=== PATIENT | male | born 1940 | race Caucasian/White ===

== ENCOUNTER → 2019-01-30 | Outpatient (CLI) | payer MEDICAID, MEDICARE ==
--- NOTE | 2019-01-31 13:13 | XCELERA REPORT ---
[address] [address] Lower Extremity Arterial Evaluation Name: TJ RAMOS Age: 78 yrs Gender: Male : 1940 Patient Status: Outpatient Patient Location: [facility] Study Date: 01/30/2019 03:02 PM Procedure: A color flow and duplex scan of the lower extremity arteries was performed bilaterally with velocity and waveform anaylsis. Reason For Study: PVD Ordering Physician: PARAM BROWN Performed By: Cosme Peña Measurements and Calculations Right Left BRIQUETTE MAKER PSV 230.1 412.5 cm/sec Prox PFA PSV -127.8 -166.0cm/sec Prox SFA PSV 101.8 169.7 cm/sec Mid SFA PSV -278.1 -173.8cm/sec Dist SFA PSV -52.5 -35.0 cm/sec Prox Pop A PSV 32.1 46.5 cm/sec Dist ARTIS PSV 14.3 19.1 cm/sec Dist FUNERAL PRE ARRANGEMENT COUNSELOR PSV 34.4 11.8 cm/sec Simon Pedis PSV 0.20 -10.8 cm/sec Right Side Arterial Evaluation Increased velocity and biphasic waveforms noted in the Common Femoral artery. Monophasic with moderately diminished velocity, spectral broadening, form Distal Femoral to the infrageniculate vessels . Quite severely diminished at the infrageniculate level. Ankle Brachial index not obtained due to inability to tolerate. Left Side Arterial Evaluation Normal velocity and triphasic waveforms noted in the Common Femoral artery. Biphasic, with low normal velocity in the Popliteal. Monophasic with quite severely diminished velocity, spectral broadening, in the infrageniculate vessels . Ankle Brachial index not obtained due to inability to tolerate. Interpretation Summary Severe hemodynamically significant lesions in the bilateral lower extremities, on duplex imaging, at rest. Multi level disease on the right, probable inflow and Femoral disease. On the left, Femoral and infrageniculate. : PARAM BROWN > Param Brown
== END ==
LOC: SP 14:34
PROVIDERS: ATTEND Surgery
DX: R09.89 Other specified symptoms and signs involving the circulatory and respiratory systems (principal)
CPT/HCPCS: 93925

== ENCOUNTER 2019-03-24 20:08 | Emergency (ER) | payer MEDICARE, MEDICAID ==
[2019-03-24] MEDS ORDERED: NORMAL SALINE 250 ML IV PRN (20:44)
--- NOTE | 2019-03-24 20:45 | ER Document Report ---
ED General - General Stated Complaint: BLOOD TRANSFUSION Time Seen by Provider: 03/24/19 20:34 Primary Care Provider: RONAN LASSITER MD [Primary Care Provider] - Follow up tomorrow Notes: Patient is a 78-year-old male who abnormal lab values. He had a CBC done today and hemoglobin was 7.6 and his hematocrit was 22.1. He currently is being taken care of by Da[facility] Lopez. He was sent by the primary care provider who took care of him today. He had a urinalysis and CBC done. Patient denies any symptoms at this time. He states that he was sent here by his primary care provider. Denies any fever, abdominal pain, chest pain, shortness of breath, difficulty breathing, or any other symptoms. TRAVEL OUTSIDE OF THE [place] IN LAST 30 DAYS: No - Related Data Allergies/Adverse Reactions: No Known Allergies Allergy (Verified 03/25/19 00:59) Past Medical History - Social History Smoking Status: Unknown if Ever Smoked Family History: Reviewed & Not Pertinent Review of Systems - Review of Systems Notes: REVIEW OF SYSTEMS: CONSTITUTIONAL : Denies recent illness. Denies recent unintentional weight loss. Denies fever, chills, or sweats. EENT: Denies eye, ear, throat, or mouth pain, discharge, or symptoms. Denies nasal or sinus congestion. CARDIOVASCULAR: Denies chest pain. RESPIRATORY: Denies shortness of breath, cough, congestion, difficulty breathing, or wheezing. GASTROINTESTINAL: Denies nausea, vomiting, and diarrhea. Denies abdominal pain. Denies constipation. GENITOURINARY: Denies difficulty urinating, burning, blood in urine, urgency or frequency. MUSCULOSKELETAL: Denies neck and back pain. Denies joint pain or swelling. SKIN: Denies rash, itchiness, or lesions HEMATOLOGIC : Denies easy bruising or bleeding. LYMPHATIC: Denies swollen, painful, enlarged glands. NEUROLOGICAL: Denies no numbness or tingling denies weakness. Denies headache. Denies altered mental status. Denies alteration in speech. PSYCHIATRIC: Denies stress, anxiety, alteration in sleep patterns, or depression. All other systems reviewed and negative. Physical Exam - Vital signs Vitals: Resp 17 03/24/19 20:23 - Notes Notes: PHYSICAL EXAMINATION: GENERAL: Appears well, healthy, well-nourished, no acute distress. HEAD: Normocephalic, atraumatic. EYES: PERRL, conjunctiva normal, all extraocular movements intact, sclera nonicteric ENT: Moist mucous membranes. NECK: Supple, no noticeable swelling, redness, rash. Normal range of motion. LUNGS: Equal breath sounds bilaterally and clear to auscultation. No wheezes rales or rhonchi. CARDIOVASCULAR: S1-S2, regular rate, regular rhythm. Radial pulses 2+, normal. ABDOMEN: Normoactive bowel sounds. Soft, nontender, no guarding, no rebound tenderness, and no masses palpated. EXTREMITIES: Normal strength and range of motion, no pitting or edema. No cyanosis. NEUROLOGICAL: Moves all extremities upon command. Strength 5/5 in all extremities. PSYCH: Normal mood, normal affect. SKIN: Warm, dry. No rash, lesions, ulcerations noted. Normal skin turgor. Course - Re-evaluation Re-evalutation: 03/24/19 20:40 Patient's blood pressure 86/38. I suspect his blood pressure is due to him needing blood. He will receive 1 unit of PRBCs. I will not redraw labs, as he did have labs drawn here resulted here and redrawing labs will delay care. I discussed the risks and benefits of a blood transfusion with the patient. He is in agreement to have the blood transfusion done. Patient appears pale. He has no abdominal tenderness. Denies any dysuria. Rectal exam will be done to rule out a GI bleed. I do not suspect the patient has an abdominal bleed, or any life-threatening etiology at this time. 03/25/19 01:18 Rectal exam was done and the patient's guaiac test is negative. He is still currently receiving his unit of PRBCs. He is normotensive now blood pressure 114/50 with a MAP of 67. Patient's hemoglobin has increased to 11. Patient looks remarkably better and he now has a pink color to his skin. I am comfortable with discharging the patient back to [facility]. He will follow-up with his primary care provider at [facility]. He is in agreement with this plan. Verbal discharge instructions were given to the patient. They verbalized understanding. They are stable for discharge. - Vital Signs Vital signs: Temp Pulse Resp BP Pulse Ox 98.0 F 57 L 15 121/58 L 95 03/25/19 02:14 03/25/19 02:10 03/25/19 04:30 03/25/19 04:30 03/25/19 04:30 - Laboratory Result Diagrams: 03/25/19 03:29 Laboratory results interpreted by me: 03/24/19 03/25/19 20:26 03:29 RBC 3.82 L Hgb 11.0 L D Hct 33.3 L RDW 14.7 H Plt Count 118 L Crossmatch See Detail Discharge - Discharge Clinical Impression: Anemia Qualifiers: Anemia type: unspecified type Qualified Code(s): D64.9 - Anemia, unspecified Condition: Stable Disposition: HOME-SNF (ED ONLY) Additional Instructions: You were seen today in the emergency department for a low blood count. You received 1 unit of blood. Your repeat labs were normal. Your stool did not show any blood. Please follow-up with your primary care provider in regards to this visit. If you develop shortness of breath, difficulty breathing, or have any symptoms that are worrisome to you, please return to the emergency department. Referrals: RONAN LASSITER MD [Primary Care Provider] - Follow up tomorrow
[2019-03-25 03:59] LABS: HEMATOCRIT 33.3 % (37.9-51.0); MEAN CORPUSCULAR HEMOGLOBIN 28.8 pg (27.0-33.4); MEAN CORPUSCULAR HGB CONC 33.1 g/dL (32.0-36.0); MEAN CORPUSCULAR VOLUME 87 fl (80-97); PLATELET COUNT 118 10^3/uL (150-450); RED BLOOD COUNT 3.82 10^6/uL (4.35-5.55); RED CELL DISTRIBUTION WIDTH 14.7 % (11.5-14.0); WHITE BLOOD COUNT 6.5 10^3/uL (4.0-10.5)
[2019-03-25 04:32] VITALS: BP 121/58
== END 2019-03-25 04:59 ==
LOC: ER 20:08
DX: D64.9 Anemia, unspecified (principal)
CPT/HCPCS: 99284; 96360; 96361; 86900; 86901; 36415; 87040; 87086; 36430; 86850; 85025; 85027; 87088; 81001; 87186; 86920; P9016; J7050

== ENCOUNTER → 2019-07-09 | Outpatient (CLI) | payer MEDICARE, MEDICAID ==
--- NOTE | 2019-07-11 15:53 | XCELERA REPORT ---
[address] [address] Lower Extremity Arterial Evaluation Name: TJ RAMOS Age: 79 yrs Gender: Male : 1940 Patient Status: Outpatient Patient Location: [facility] Study Date: 07/09/2019 03:16 PM Procedure: A color flow and duplex scan of the lower extremity arteries was performed bilaterally with velocity and waveform anaylsis. Reason For Study: DECREASED PEDAL PULSE Ordering Physician: PARAM SHERIFF Performed By: Nicole Steele Measurements and Calculations Right Left DIRECTOR WOMEN PSV 219.0 396.8 cm/sec Prox PFA PSV -118.0 -133.4cm/sec Prox SFA PSV -99.8 -66.4 cm/sec Mid SFA PSV -52.4 -37.3 cm/sec Dist SFA PSV -58.5 -46.8 cm/sec Prox Pop A PSV 30.0 43.6 cm/sec Dist Pop A PSV -22.5 -304.5cm/sec Prox ARTIS PSV 54.7 64.0 cm/sec Dist ARTIS PSV 30.6 36.8 cm/sec Prox SERVICE CREW SUPERVISOR PSV 36.8 cm/sec Dist SERVICE CREW SUPERVISOR PSV 22.7 14.3 cm/sec Dist Contreras A 26.7 cm/sec PSV Simon Pedis PSV -25.8 35.0 cm/sec Right Side Arterial Evaluation Normal velocity and triphasic waveforms noted in the Common Femoral artery. Biphasic with high velocity, spectral broadening in the Femoral. Monophasic low velocity, spectral broadening in the Popliteal to infrageniculate vessels. Ankle Brachial index not obtained due to discomfort. Left Side Arterial Evaluation Very high velocity and Biphasic waveforms noted in the Common Femoral artery. Biphasic with high velocity, spectral broadening in the Femoral. Monophasic low velocity, spectral broadening in the Popliteal to infrageniculate vessels. A focal area of increased velocity in the Popliteal. Ankle Brachial index not obtained due to discomfort. Interpretation Summary Severe hemodynamically significant lesions in the bilateral lower extremities, on duplex imaging, at rest. Duplex findings of multilevel, stenoses. On the right Femoral and Posterior Tibial. On the left Common Femoral, Femoral arteries affected. : PARAM SHERIFF > Param Sheriff
== END ==
LOC: SP 14:51
PROVIDERS: ATTEND Surgery
DX: R09.89 Other specified symptoms and signs involving the circulatory and respiratory systems (principal)
CPT/HCPCS: 93925

== ENCOUNTER 2019-11-03 11:53 | Emergency (ER) | payer MEDICARE, MEDICAID ==
--- NOTE | 2019-11-03 12:13 | ER Document Report ---
ED General - General Chief Complaint: Foot Pain Stated Complaint: WEAKNESS Time Seen by Provider: 11/03/19 12:00 Primary Care Provider: PARAM BROWN MD [Primary Care Provider] - Follow up as needed TRAVEL OUTSIDE OF THE [place] IN LAST 30 DAYS: No - HPI Context: Patient presents from rehabilitation facility for the chief complaint of left foot pain and nursing staff stated that the patient is not acting himself. He denies any recent cough congestion fevers chest pain or shortness of breath. He denies any dysuria. He is oriented x3 and is not in any distress. Upon chart review he is not on any blood thinners. No recent traumas or falls per the patient. - Related Data Allergies/Adverse Reactions: No Known Allergies Allergy (Verified 11/03/19 12:46) Past Medical History - Social History Smoking Status: Unknown if Ever Smoked Family History: Reviewed & Not Pertinent - Past Medical History Cardiac Medical History: Reports: Hx Hypertension Renal/ Medical History: Denies: Hx Peritoneal Dialysis Past Surgical History: Reports: Hx Cardiac Surgery, Hx Open Heart Surgery Review of Systems - Review of Systems Constitutional: No symptoms reported EENT: No symptoms reported Cardiovascular: No symptoms reported Respiratory: No symptoms reported Gastrointestinal: No symptoms reported Genitourinary: No symptoms reported Male Genitourinary: No symptoms reported Musculoskeletal: See HPI Skin: No symptoms reported Hematologic/Lymphatic: No symptoms reported Neurological/Psychological: No symptoms reported Physical Exam - Vital signs Vitals: Temp Resp BP Pulse Ox 97.9 F 16 111/50 L 95 11/03/19 12:08 11/03/19 12:08 11/03/19 12:08 11/03/19 12:08 - General General appearance: Appears well, Alert - HEENT Head: Normocephalic, Atraumatic Eyes: Normal Conjunctiva: Normal Extraocular movements intact: Yes Pupils: PERRL - Respiratory Respiratory status: No respiratory distress Chest status: Nontender Breath sounds: Normal - Cardiovascular Rhythm: Regular Heart sounds: Normal auscultation Murmur: No - Abdominal Inspection: Normal Distension: No distension Bowel sounds: Normal - Back Back: Normal - Extremities General upper extremity: Normal inspection, Normal strength General lower extremity: Other - Patient has stasis dermatitis with erythema but no warmth bilateral lower extremities left versus right. +2 pitting edema bilateral feet. Palpable DP pulses with Doppler. Extensive toenail fungus onychomycosis bilateral lower extremities with no open wounds. Course - Re-evaluation Re-evalutation: 11/03/19 13:26 Initial troponin XX 3 in the absence of any chest pain. [facility] apparently patient was looking pale last night and having pain in his left foot which prompted her to send the patient to the emergency department. Repeat troponin in progress. Aspirin provided. Reevaluation of the patient he states he does not have any chest pain at this time. 11/03/19 14:46 Patient is DNR/DNI, however he would request possible catheterization if necessary. Repeat troponin essentially same as first. Discussed case with Dr. Graves, due to elevated troponin and possible catheterization request transfer. His open heart surgery was performed at [facility] discussed with transfer gerardo mary jo awaiting cardiology consultation at this time. In regards to his foot it is not warm though does have erythema worse on left and right appears chronic with stasis dermatitis and pitting edema. X-ray shows soft tissue swelling of left foot. He can also be evaluated by vascular while he is at [facility]. Discussed with Dr. Amor 11/03/19 15:[address] Amor at [facility] will accept patient for catheterization. This was determined after having lengthy discussion with family at bedside whose patient's daughter is medical power of sports attorney as well as the patient. 11/03/19 18:28 [facility] called back stated that they do not have any beds at this time it would not be until tomorrow. I tried to call [facility] transfer center and they do not have any beds at this time either. Patient remained stable chest pain- free. 11/03/19 19:17 Providing intermittent fentanyl for his left lower foot pain. Also placed standing order for every 6 EKG and troponin while patient is still in the emergency department. He also has every 12 Lovenox injection scheduled. 11/03/19 20:37 Troponin trending down on serial draw patient remains chest pain-free 11/04/19 08:49 Patient evaluated by me and is stable for transport who is arrived at this time - Vital Signs Vital signs: Temp Pulse Resp BP Pulse Ox 99.0 F 24 H 119/72 91 L 11/04/19 08:32 11/04/19 08:32 11/04/19 08:32 11/04/19 07:30 - Laboratory Result Diagrams: 11/04/19 06:50 11/03/19 12:00 Laboratory results interpreted by me: 11/03/19 11/03/19 11/03/19 12:00 12:00 12:00 RBC 3.22 L Hgb 10.3 L Hct 30.2 L RDW 14.3 H Plt Count 124 L PT 15.5 H APTT 37.0 H Creatinine 1.35 H Est GFR (MDRD) Non-Af 51 L AST 78 H NT-Pro-B Natriuret Pep Albumin 3.4 L Urine Ascorbic Acid 11/03/19 11/03/19 11/04/19 12:40 13:11 06:50 RBC 2.90 L Hgb 9.2 L Hct 26.8 L RDW 14.1 H Plt Count 111 L PT APTT Creatinine Est GFR (MDRD) Non-Af AST NT-Pro-B Natriuret Pep 6840 H Albumin Urine Ascorbic Acid 40 H - EKG Interpretation by Me Additional EKG results interpreted by me: 11/03/19 12:43 Time 12:25 PM Rate of 89 sinus rhythm, first-degree AV block with MS 252, normal axis, nonspecific ST-T wave abnormalities Discharge - Discharge Clinical Impression: NSTEMI (non-ST elevated myocardial infarction), PVD (peripheral vascular disease), Left foot pain Condition: Fair Disposition: [facility] Referrals: PARAM BROWN MD [Primary Care Provider] - Follow up as needed
[2019-11-03 12:33] LABS: ABSOLUTE EOSINOPHILS # (AUTO) 0.2 10^3/uL (0.0-0.6); ABSOLUTE LYMPHOCYTES (AUTO) 1.5 10^3/uL (0.5-4.7); ABSOLUTE MONOCYTES (AUTO) 0.9 10^3/uL (0.1-1.4); ABSOLUTE NEUT (AUTO) 6.1 10^3/uL (1.7-8.2); BASOPHILS % (AUTO) 0.3 % (0-2); EOSINOPHILS % (AUTO) 2.1 % (0-6); HEMATOCRIT 30.2 % (37.9-51.0); HEMOGLOBIN 10.3 g/dL (13.5-17.0); LYMPHOCYTES % (AUTO) 16.9 % (13-45); MEAN CORPUSCULAR HEMOGLOBIN 31.9 pg (27.0-33.4); MEAN CORPUSCULAR VOLUME 94 fl (80-97); MONOCYTES % (AUTO) 10.3 % (3-13); PLATELET COUNT 124 10^3/uL (150-450); RED BLOOD COUNT 3.22 10^6/uL (4.35-5.55); RED CELL DISTRIBUTION WIDTH 14.3 % (11.5-14.0); SEGMENTED NEUTROPHILS % (AUTO) 70.4 % (42-78); TOTAL CELLS COUNTED % (AUTO) 100 %; WHITE BLOOD COUNT 8.7 10^3/uL (4.0-10.5)
[2019-11-03] MEDS ORDERED: NORMAL SALINE 500 ML IV ONE (12:37)
[2019-11-03 12:39] LABS: ALBUMIN 3.4 g/dL (3.5-5.0); ALKALINE PHOSPHATASE 94 U/L (38-126); ANION GAP 9 (5-19); ASPARTATE AMINO TRANSFERASE 78 U/L (17-59); BILIRUBIN,DIRECT 0.2 mg/dL (0.0-0.4); BILIRUBIN,TOTAL 0.7 mg/dL (0.2-1.3); BLOOD UREA NITROGEN 19 mg/dL (7-20); CALCIUM 8.6 mg/dL (8.4-10.2); CARBON DIOXIDE 27 mmol/L (22-30); CHLORIDE 107 mmol/L (98-107); GLUCOSE 97 mg/dL (75-110); POTASSIUM 4.2 mmol/L (3.6-5.0); TOTAL PROTEIN 6.3 g/dL (6.3-8.2)
[2019-11-03 13:01] LABS: APPEARANCE,URINE CLEAR; BILIRUBIN,URINE NEGATIVE (NEGATIVE); COLOR,URINE YELLOW; GLUCOSE, URINE NEGATIVE (NEGATIVE); KETONES,URINE NEGATIVE (NEGATIVE); LEUKOCYTE ESTERASE,URINE NEGATIVE (NEGATIVE); NITRITE,URINE NEGATIVE (NEGATIVE); PROTEIN,URINE NEGATIVE (NEGATIVE); URINE SPECIFIC GRAVITY 1.015; UROBILINOGEN,URINE NEGATIVE mg/dL (<2.0)
[2019-11-03] MEDS ORDERED: ASPIRIN 81 MG TABLET, CHEWABLE PO ONE ×2 (13:07→22:37)
[2019-11-03] MEDS ORDERED: FENTANYL CITRATE INJ/PF 100 MCG/2 ML AMPUL IV ONE ×3 (13:16→19:16)
--- NOTE | 2019-11-03 13:20 | RADIOLOGY REPORT (SQ) ---
EXAM DESCRIPTION: CHEST SINGLE VIEW COMPLETED DATE/TIME: 11/03/2019 1:03 pm REASON FOR STUDY: not acting right per nursing staff COMPARISON: None. NUMBER OF VIEWS: One view. TECHNIQUE: Single frontal radiographic view of the chest acquired. LIMITATIONS: Numerous external monitor lead artifacts over the left lower chest. FINDINGS: LUNGS AND PLEURA: Minimal right perihilar edema. Suspect mild left perihilar infiltrate a s well. No pneumothorax. No large pleural effusion. MEDIASTINUM AND HILAR STRUCTURES: No masses. Contour normal. HEART AND VASCULAR STRUCTURES: Cardiomegaly. Mild vascular congestion centrally. BONES: No acute findings. HARDWARE: None in the chest. OTHER: No other significant finding. IMPRESSION: Limited study. Findings as above may reflect minimal edema. TECHNICAL DOCUMENTATION: JOB ID: [id number] [employer]- All Rights Reserved Reading location - IP/workstation name: [email or web address]
--- NOTE | 2019-11-03 13:22 | RADIOLOGY REPORT (SQ) ---
EXAM DESCRIPTION: FOOT LEFT 2 VIEWS COMPLETED DATE/TIME: 11/03/2019 1:03 pm REASON FOR STUDY: FOOT PAIN COMPARISON: None. NUMBER OF VIEWS: Two views left foot LIMITATIONS: Limited clinical information. FINDINGS: Generalized limiting osteopenia. Regional vascular calcification. Soft tissue swelling o lillian the forefoot. No displaced fracture appreciated. Chronic 3rd metatarsal healed fracture. No ag gressive bone resorption. No radiopaque foreign body. OTHER: No other significant finding. IMPRESSION: Osteopenia, vascular disease. Soft tissue swelling. No acute bone pathology allowing f or limitations. TECHNICAL DOCUMENTATION: JOB ID: [id number] Reading location - IP/workstation name: [email or web address]
[2019-11-03 14:32] LABS: TROPONIN I 22.7 ng/mL
[2019-11-03 15:44] LABS: INTERNATIONAL RATION (INR) 1.22; PROTHROMBIN TIME 15.5 SEC (11.4-15.4)
[2019-11-03] MEDS: ENOXAPARIN SODIUM INJ 100 MG/1 ML DISP.SYRIN SUBCUT SCH ×2 (16:32→21:38)
--- NOTE | 2019-11-03 19:27 | EKG REPORT ---
SEVERITY:- ABNORMAL ECG - SINUS RHYTHM FIRST DEGREE AV BLOCK NONSPECIFIC INTRAVENTRICULAR CONDUCTION DELAY : Confirmed by: Elaine Phoenix MD 03-Nov-2019 19:26:19
--- NOTE | 2019-11-03 19:27 | EKG REPORT ---
SEVERITY:- ABNORMAL ECG - SINUS RHYTHM FIRST DEGREE AV BLOCK LEFT AXIS DEVIATION PROBABLE POSTERIOR INFARCT NONSPECIFIC T ABNORMALITIES, LATERAL LEADS : Confirmed by: Elaine Phoenix MD 03-Nov-2019 19:26:26
[2019-11-03] MEDS: CLINDAMYCIN 600 MG/D5W RTU 600 MG/50 ML RTUPB IV SCH (23:15)
[2019-11-03] MEDS ORDERED: HYDROMORPHONE HCL INJ/PF 2 MG/ML AMPULE IV ONE (23:17)
[2019-11-03] MEDS ORDERED: TAMSULOSIN HCL 0.4 MG CAP.SR.24H PO ONE (23:30)
[2019-11-03] MEDS ORDERED: ATORVASTATIN CALCIUM 40 MG TABLET PO ONE (23:30)
[2019-11-04] MEDS ORDERED: MORPHINE SULFATE 10 MG/ML INJ IV ONE (01:58)
[2019-11-04] MEDS ORDERED: OXYCODONE HCL IR 5 MG TABLET PO SCH (06:00)
[2019-11-04] MEDS ORDERED: HYDROMORPHONE HCL INJ/PF 2 MG/ML AMPULE IV ONE (06:05)
[2019-11-04 07:11] LABS: HEMATOCRIT 26.8 % (37.9-51.0); HEMOGLOBIN 9.2 g/dL (13.5-17.0); MEAN CORPUSCULAR HEMOGLOBIN 31.6 pg (27.0-33.4); MEAN CORPUSCULAR HGB CONC 34.3 g/dL (32.0-36.0); MEAN CORPUSCULAR VOLUME 92 fl (80-97); PLATELET COUNT 111 10^3/uL (150-450); RED CELL DISTRIBUTION WIDTH 14.1 % (11.5-14.0); WHITE BLOOD COUNT 6.8 10^3/uL (4.0-10.5)
[2019-11-04] MEDS ORDERED: NORMAL SALINE 1000 ML 1,000 ML IV ONE (07:16)
[2019-11-04] MEDS: CLINDAMYCIN 600 MG/D5W RTU 600 MG/50 ML RTUPB IV SCH (07:21)
--- NOTE | 2019-11-04 07:45 | EKG REPORT ---
SEVERITY:- ABNORMAL ECG - SINUS RHYTHM FIRST DEGREE AV BLOCK LEFT ANTERIOR FASCICULAR BLOCK NONSPECIFIC ANTEROLATERAL ST-T CHANGES : Confirmed by: Fly Short MD 04-Nov-2019 07:44:15
--- NOTE | 2019-11-04 07:45 | EKG REPORT ---
SEVERITY:- ABNORMAL ECG - SINUS RHYTHM FIRST DEGREE AV BLOCK LEFT AXIS DEVIATION NONSPECIFIC ST-T CHANGES- ANTEROLATERAL LEADS : Confirmed by: Fly Short MD 04-Nov-2019 07:45:11
[2019-11-04] MEDS ORDERED: FUROSEMIDE 20 MG TABLET PO SCH (08:00)
[2019-11-04 08:45] VITALS: BP 119/72
[2019-11-04] MEDS ORDERED: METOPROLOL SUCCINATE 25 MG TAB.SR.24H PO SCH (10:00)
[2019-11-04] MEDS ORDERED: LOSARTAN POTASSIUM 50 MG TABLET PO SCH (10:00)
[2019-11-04] MEDS ORDERED: ASPIRIN 81 MG TABLET, ENT COATED PO SCH (10:00)
[2019-11-04] MEDS ORDERED: POTASSIUM CHLORIDE 10 MEQ TABLET.ER PO SCH (10:00)
[2019-11-04] MEDS ORDERED: FLUOXETINE HCL 20 MG/5 ML UDCUP PO SCH (10:00)
[2019-11-04] MEDS ORDERED: GABAPENTIN 300 MG CAPSULE PO SCH (10:00)
[2019-11-04] MEDS ORDERED: ATORVASTATIN CALCIUM 40 MG TABLET PO SCH (22:00)
[2019-11-04] MEDS ORDERED: TAMSULOSIN HCL 0.4 MG CAP.SR.24H PO SCH (22:00)
== END 2019-11-04 08:52 | disposition short-term general hospital (02) ==
LOC: ER 11:53
DX: I21.4 Non-ST elevation (NSTEMI) myocardial infarction (principal); I73.9 Peripheral vascular disease, unspecified; M79.672 Pain in left foot; R53.1 Weakness; I10 Essential (primary) hypertension
CPT/HCPCS: 93005 ×2; 96376; 99285; 96372; 96361; 96375; 96365; 36415; 87040; 82962; 83605; 83735; 85025; 85027; 85610; 85730; 80053; 81001; 84484; 83880; 71045; 73620; 93010 ×2; A9270 ×3; J3010; J1170 ×2; J7030; J7040; J1650

== ENCOUNTER 2019-11-16 14:40 | Inpatient (IN) | payer MEDICARE, MEDICAID ==
--- NOTE | 2019-11-16 15:27 | ER Document Report ---
ED General - General Stated Complaint: GENERAL WEAKNESS Time Seen by Provider: 11/16/19 14:54 Information source: Patient TRAVEL OUTSIDE OF THE [place] IN LAST 30 DAYS: No - HPI Onset: Other - unknown onset Onset/Duration: Persistent Quality of pain: No pain Severity: Moderate Pain Level: Denies Associated symptoms: Shortness of breath, Weakness Exacerbated by: Denies Relieved by: Denies Similar symptoms previously: No Recently seen / treated by doctor: Yes - patient was just DCed from a hospital yesterday Notes: 79 year old male with a history of HTN, "open heart surgery," recent left AKA who was just discharged form [facility] yesterday sent to the ER for weakness and "not feeling well." The patient is not much of a historian. He was hypotensive and hypoxic on ER arrival and he has no history of lung disease although he used to smoke. - Related Data Allergies/Adverse Reactions: No Known Allergies Allergy (Verified 11/03/19 12:46) Past Medical History - General Information source: Patient - Social History Smoking Status: Former Smoker Frequency of alcohol use: Social Drug Abuse: None Family History: Reviewed & Not Pertinent - Past Medical History Cardiac Medical History: Reports: Hx Hypertension Renal/ Medical History: Denies: Hx Peritoneal Dialysis Past Surgical History: Reports: Hx Cardiac Surgery, Hx Open Heart Surgery Physical Exam - Vital signs Vitals: Temp Pulse Resp BP Pulse Ox 99.0 F 83 20 98/40 L 85 L 11/16/19 15:00 11/16/19 15:00 11/16/19 15:00 11/16/19 15:00 11/16/19 15:00 - Notes Notes: GENERAL: Chronically Ill Appearing, well-nourished and mild distress HEAD: Atraumatic, normocephalic. EYES: Pupils equal round and reactive to light, extraocular movements intact, sclera anicteric, conjunctiva are normal. ENT: Nares patent, oropharynx clear without exudates. Moist mucous membranes. NECK: Normal range of motion, supple without lymphadenopathy or JVD. LUNGS: Breath sounds clear to auscultation bilaterally and equal. No wheezes rales or rhonchi. HEART: Regular rate and rhythm without murmurs, rubs or gallops. ABDOMEN: Soft, nontender, normoactive bowel sounds. No guarding, no rebound. No masses appreciated. EXTREMITIES: Normal range of motion, no pitting or edema. No clubbing or cyanosis. Left lower extremity AKA - surgical wound is clean and dry with román in place. NEUROLOGICAL: Cranial nerves II through XII grossly intact. Normal speech, no rmal gait. PSYCH: Normal mood, normal affect. SKIN: Warm, Dry, normal turgor, no rashes or lesions noted. Course - Re-evaluation Re-evalutation: 11/16/19 16:33 The patient has a BNP in the [id number] and his Xray shows a pleural effusion and patchy infiltrates vs atelectasis. Patient likely just has new onset heart failure from his recent heart attack but hospital acquired pneumonia is also possible. Patient was hypotensive on ER arrival so 500mL of fluids was given. Patient's BP came up after that. Will admit for further treatment and work up. Patient's WBC count and Lactic Acid are in the normal range and his temp is 99 making a serious infectious process seem unlikely. Will defer antibiotics for now to the hospitalist team. 11/16/19 16:42 11/16/19 19:26 Hospitalist Team will get Cardiology involved given the patient's likely new onset heart failure. - Vital Signs Vital signs: Temp Pulse Resp BP Pulse Ox 99.0 F 83 21 H 112/61 92 11/16/19 15:00 11/16/19 15:00 11/16/19 18:01 11/16/19 18:01 11/16/19 18:01 - Laboratory Result Diagrams: 11/16/19 15:22 11/16/19 15:22 Laboratory results interpreted by me: 11/16/19 11/16/19 11/16/19 15:22 15:22 15:22 RBC 2.69 L Hgb 8.3 L Hct 24.8 L RDW 14.5 H Carbonic Acid ABG pH ABG pCO2 ABG pO2 ABG Total CO2 ABG O2 Saturation BUN 30 H Creatinine 1.41 H Est GFR ( Amer) 59 L Est GFR (MDRD) Non-Af 48 L Calcium 8.1 L NT-Pro-B Natriuret Pep 80890 H Total Protein 6.1 L Albumin 3.1 L Urine Urobilinogen Urine Ascorbic Acid 11/16/19 11/16/19 15:55 16:39 RBC Hgb Hct RDW Carbonic Acid 0.95 L ABG pH 7.46 H ABG pCO2 31.5 L ABG pO2 61.0 L ABG Total CO2 22.8 L ABG O2 Saturation 92.9 L BUN Creatinine Est GFR ( Amer) Est GFR (MDRD) Non-Af Calcium NT-Pro-B Natriuret Pep Total Protein Albumin Urine Urobilinogen 2.0 H Urine Ascorbic Acid 20 H - EKG Interpretation by Mo EKG shows normal: Sinus rhythm, [place], Intervals, QRS Complexes, ST-T Waves Rhythm: NSR Discharge - Discharge Clinical Impression: Hypoxemia Heart failure Qualifiers: Heart failure type: unspecified Heart failure chronicity: acute Qualified Code(s): I50.9 - Heart failure, unspecified Condition: Stable Disposition: ADMITTED OBSERVATION Admitting Provider: Eligio (Hospitalist) Unit Admitted: [facility]
[2019-11-16 15:38] LABS: ABSOLUTE BASOPHILS # (AUTO) 0.1 10^3/uL (0.0-0.2); ABSOLUTE EOSINOPHILS # (AUTO) 0.3 10^3/uL (0.0-0.6); ABSOLUTE LYMPHOCYTES (AUTO) 1.2 10^3/uL (0.5-4.7); ABSOLUTE MONOCYTES (AUTO) 0.7 10^3/uL (0.1-1.4); ABSOLUTE NEUT (AUTO) 6.7 10^3/uL (1.7-8.2); BASOPHILS % (AUTO) 0.6 % (0-2); EOSINOPHILS % (AUTO) 2.8 % (0-6); HEMATOCRIT 24.8 % (37.9-51.0); HEMOGLOBIN 8.3 g/dL (13.5-17.0); LYMPHOCYTES % (AUTO) 13.2 % (13-45); MEAN CORPUSCULAR HEMOGLOBIN 30.9 pg (27.0-33.4); MEAN CORPUSCULAR HGB CONC 33.5 g/dL (32.0-36.0); MEAN CORPUSCULAR VOLUME 92 fl (80-97); MONOCYTES % (AUTO) 8.1 % (3-13); PLATELET COUNT 294 10^3/uL (150-450); RED BLOOD COUNT 2.69 10^6/uL (4.35-5.55); RED CELL DISTRIBUTION WIDTH 14.5 % (11.5-14.0); SEGMENTED NEUTROPHILS % (AUTO) 75.3 % (42-78); TOTAL CELLS COUNTED % (AUTO) 100 %; WHITE BLOOD COUNT 8.9 10^3/uL (4.0-10.5)
[2019-11-16 15:56] LABS: ALBUMIN 3.1 g/dL (3.5-5.0); ALKALINE PHOSPHATASE 81 U/L (38-126); ANION GAP 8 (5-19); ASPARTATE AMINO TRANSFERASE 24 U/L (17-59); BILIRUBIN,DIRECT 0.2 mg/dL (0.0-0.4); BLOOD UREA NITROGEN 30 mg/dL (7-20); CALCIUM 8.1 mg/dL (8.4-10.2); CARBON DIOXIDE 25 mmol/L (22-30); CHLORIDE 107 mmol/L (98-107); GLUCOSE 88 mg/dL (75-110); POTASSIUM 4.5 mmol/L (3.6-5.0); TOTAL PROTEIN 6.1 g/dL (6.3-8.2)
[2019-11-16] MEDS ORDERED: NORMAL SALINE 500 ML IV ONE (16:00)
[2019-11-16] MEDS ORDERED: MORPHINE SULFATE 10 MG/ML INJ IV ONE (16:01)
--- NOTE | 2019-11-16 16:02 | RADIOLOGY REPORT (SQ) ---
EXAM DESCRIPTION: CHEST SINGLE VIEW COMPLETED DATE/TIME: 11/16/2019 2:43 pm REASON FOR STUDY: eval for SOB. rule out pneumonia COMPARISON: 11/03/2019 EXAM PARAMETERS: NUMBER OF VIEWS: One view. TECHNIQUE: Single frontal radiographic view of the chest acquired. RADIATION DOSE: NA LIMITATIONS: None. FINDINGS: LUNGS AND PLEURA: There is new consolidation in the right lower lobe. New left retrocardi ac opacity is also present. Small right pleural effusion. No pneumothorax. MEDIASTINUM AND HILAR STRUCTURES: No masses. Contour normal. HEART AND VASCULAR STRUCTURES: Heart normal in size. Normal vasculature. BONES: No acute findings. HARDWARE: None in the chest. OTHER: No other significant finding. IMPRESSION: 1. New consolidation in the right lower lobe with small right pleural effusion suggestive of infectio us/inflammatory process. Aspiration pneumonitis can also have this appearance. 2. Patchy retrocardiac opacity may represent multifocal pneumonia or possibly atelectasis. RECOMMENDATIONS: Follow-up to complete resolution. TECHNICAL DOCUMENTATION: JOB ID: [id number] [employer]- All Rights Reserved Reading location - IP/workstation name: [email or web address]
[2019-11-16 16:17] LABS: TROPONIN I 0.214 ng/mL
[2019-11-16 16:18] LABS: APPEARANCE,URINE SLIGHTLY-CLOUDY; BILIRUBIN,URINE NEGATIVE (NEGATIVE); COLOR,URINE YELLOW; GLUCOSE, URINE NEGATIVE (NEGATIVE); KETONES,URINE NEGATIVE (NEGATIVE); LEUKOCYTE ESTERASE,URINE NEGATIVE (NEGATIVE); NITRITE,URINE NEGATIVE (NEGATIVE); PROTEIN,URINE NEGATIVE (NEGATIVE); URINE SPECIFIC GRAVITY 1.017
[2019-11-16] MEDS ORDERED: CEFTRIAXONE INJ 1000 MG VIAL IV ONE (16:27)
[2019-11-16 17:00] LABS: ARTERIAL BLOOD BASE EXCESS -1.6 mmol/L; ARTERIAL BLOOD H2CO3 0.95 mmol/L (1.05-1.35); ARTERIAL BLOOD HCO3 21.8 mmol/L (20-24); ARTERIAL BLOOD O2 SATURATION 92.9 % (94-98); ARTERIAL BLOOD PCO2 31.5 mmHg (35-45); ARTERIAL BLOOD PH 7.46 (7.35-7.45); ARTERIAL BLOOD TOTAL CO2 22.8 mmol/L (23-27)
[2019-11-16 17:01] LABS: ARTERIAL BLOOD FIO2 ROOM AIR
[2019-11-16] MEDS ORDERED: GUAIFENESIN SYRP 200 MG/10 ML UDC PO PRN (17:58)
[2019-11-16] MEDS ORDERED: VANCOMYCIN HCL 0 MG in DEXTROSE 5%-WATER 250 ML IV NR (18:00)
[2019-11-16] MEDS ORDERED: PHARMACY COMMUNICATION ORDER MC NR (18:00)
--- NOTE | 2019-11-16 18:21 | PDOC H&P ---
History of Present Illness Admission Date/PCP: 11/16/19 17:03 PARAM BROWN MD Patient complains of: Feeling poorly History of Present Illness: TJ RAMOS is a 79 year old male who was discharged yesterday from [facility] who at the age of [age] years old had a left above-knee amputation. He had atrial fibrillation and has a complex cardiac history. Daija Lopez sent him over because "he did not look good ". The patient presents quite f rail. No increased work of breathing. Abnormal chest x-ray. No elevated white blood cell count. Elevated troponin. Referred to hospitalist for admission Past Medical History Cardiac Medical History: Reports: Atrial Fibrillation, Congestive Heart Failure, Coronary Artery Disease, Hypertension, Peripheral Vascular Disease Pulmonary Medical History: Reports: Chronic Obstructive Pulmonary Disease (COPD) GI Medical History: Reports: Other - Hiatal hernia Musculoskeltal Medical History: Reports: Arthritis Past Surgical History Past Surgical History: Reports: Other - Amputation Social History Information Source: Patient, Relative, H Records, Outside Facility Records Lives with: [facility] Smoking Status: Former Smoker Electronic Cigarette use?: No Frequency of Alcohol Use: None Hx Recreational Drug Use: No Hx Prescription Drug Abuse: No - Advance Directive Resuscitation Status: Do Not Resuscitate Family History Family History: Reviewed & Not Pertinent Parental Family History Reviewed: Yes Children Family History Reviewed: Yes Sibling(s) Family History Reviewed.: Yes Medication/Allergy Home Medications: Aspirin [Adult Aspirin Regimen] 81 mg PO DAILY 11/03/19 Atorvastatin Calcium [Lipitor 40 mg Tablet] 40 mg PO QHS 11/03/19 Cephalexin Monohydrate [Keflex 500 mg Capsule] 500 mg PO BID 11/03/19 Fluoxetine HCl 10 mg PO DAILY 11/03/19 Furosemide [Lasix 20 mg Tablet] 20 mg PO QAM 11/03/19 Gabapentin [Neurontin 300 mg Capsule] 300 mg PO TID 11/03/19 Losartan Potassium [Cozaar 50 mg Tablet] 50 mg PO DAILY 11/03/19 Metoprolol Succinate 25 mg PO DAILY 11/03/19 Oxycodone HCl [Oxy-Ir 5 mg Tablet] 5 mg PO Q8H 11/03/19 Potassium Chloride 10 meq PO DAILY 11/03/19 Tamsulosin HCl [Flomax] 0.4 mg PO QHS 11/03/19 Allergies/Adverse Reactions: No Known Allergies Allergy (Verified 11/03/19 12:46) Review of Systems All systems: reviewed and no additional remarkable complaints except as stated Constitutional: PRESENT: weakness Respiratory: PRESENT: dyspnea Physical Exam Vital Signs: Temp Pulse Resp BP Pulse Ox 99.0 F 83 21 H 107/61 91 L 11/16/19 15:00 11/16/19 15:00 11/16/19 17:31 11/16/19 17:31 11/16/19 17:31 Intake & Output 11/15/19 11/16/19 11/17/19 06:59 06:59 06:59 Intake Total 500 Balance 500 Weight 76.5 kg General appearance: PRESENT: cooperative, mild distress, well-developed Mouth exam: PRESENT: dry mucosa, tongue midline Respiratory exam: PRESENT: rhonchi, symmetrical, unlabored. ABSENT: rales, tachypnea, wheezes Cardiovascular exam: PRESENT: RRR, +S1, +S2 GI/Abdominal exam: PRESENT: normal bowel sounds, soft. ABSENT: tenderness Extremities exam: PRESENT: other - New left above-knee amputation Neurological exam: PRESENT: alert, awake, oriented to person, oriented to place, oriented to situation Psychiatric exam: PRESENT: appropriate affect Skin exam: PRESENT: other - Incision left stump Results Laboratory Results: 11/16/19 15:22 11/16/19 15:22 11/16/19 11/16/19 11/16/19 15:22 15:22 15:22 WBC 8.9 RBC 2.69 L Hgb 8.3 L Hct 24.8 L MCV 92 MCH 30.9 MCHC 33.5 RDW 14.5 H Plt Count 294 Seg Neutrophils % 75.3 Carbonic Acid HCO3/H2CO3 Ratio ABG pH ABG pCO2 ABG pO2 ABG HCO3 ABG O2 Saturation ABG Base Excess FiO2 Sodium 139.7 Potassium 4.5 Chloride 107 Carbon Dioxide 25 Anion Gap 8 BUN 30 H Creatinine 1.41 H Est GFR ( Amer) 59 L Glucose 88 Lactic Acid 0.9 Calcium 8.1 L Total Bilirubin 1.0 AST 24 Alkaline Phosphatase 81 Total Protein 6.1 L Albumin 3.1 L Urine Color Urine Appearance Urine pH Ur Specific [place] Urine Protein Urine Glucose (UA) Urine Ketones Urine Blood Urine Nitrite Ur Leukocyte Esterase Urine WBC (Auto) Urine RBC (Auto) 11/16/19 11/16/19 15:55 16:39 WBC RBC Hgb Hct MCV MCH MCHC RDW Plt Count Seg Neutrophils % Carbonic Acid 0.95 L HCO3/H2CO3 Ratio 22:1 ABG pH 7.46 H ABG pCO2 31.5 L ABG pO2 61.0 L ABG HCO3 21.8 ABG O2 Saturation 92.9 L ABG Base Excess -1.6 FiO2 ROOM AIR Sodium Potassium Chloride Carbon Dioxide Anion Gap BUN Creatinine Est GFR ( Amer) Glucose Lactic Acid Calcium Total Bilirubin AST Alkaline Phosphatase Total Protein Albumin Urine Color YELLOW Urine Appearance SLIGHTLY-CLOUDY Urine pH 7.0 Ur Specific [place] 1.017 Urine Protein NEGATIVE Urine Glucose (UA) NEGATIVE Urine Ketones NEGATIVE Urine Blood NEGATIVE Urine Nitrite NEGATIVE Ur Leukocyte Esterase NEGATIVE Urine WBC (Auto) 2 Urine RBC (Auto) 3 11/16/19 15:22 Troponin I 0.214 NT-Pro-B Natriuret Pep 45575 H Impressions: Chest X-Ray 11/16/19 15:24 IMPRESSION: 1. New consolidation in the right lower lobe with small right pleural effusion suggestive of infectious/inflammatory process. Aspiration pneumonitis can also have this appearance. 2. Patchy retrocardiac opacity may represent multifocal pneumonia or possibly atelectasis. Assessment and Plan - Diagnosis (1) Aspiration pneumonia Qualifiers: Aspiration pneumonia type: due to regurgitated food Laterality: bilateral Is this a current diagnosis for this admission?: Yes (2) Persistent atrial fibrillation Is this a current diagnosis for this admission?: Yes (3) Coronary artery disease Qualifiers: Coronary Disease-Associated Artery/Lesion type: [place] artery Is this a current diagnosis for this admission?: Yes (4) Peripheral vascular disease Is this a current diagnosis for this admission?: Yes (5) Systolic congestive heart failure Qualifiers: Heart failure chronicity: acute on chronic Qualified Code(s): I50.23 - Acute on chronic systolic (congestive) heart failure Is this a current diagnosis for this admission?: Yes - Plan Summary Summary: Patient likely has pneumonia is the primary etiology for admission. He has poor heart function and during his hospitalization in [place] had a transesophageal echo with an ejection fraction of 40%. He does not have a white count but this is likely due to frailty and his recent critical illness. He has a rash on his back that could be related to infection. Blood cultures have been drawn. He will be placed on antibiotics and admitted to the [facility]. We will resume his cardiac medications blood pressure dependent. 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
[2019-11-16] MEDS ORDERED: NITROGLYCERIN 0.4 MG/TAB 25 TAB/BOTTLE SL PRN (18:31)
--- NOTE | 2019-11-16 19:46 | ADVANCED CARE ---
- Diagnosis (1) Aspiration pneumonia Diagnosis Current: Yes (2) Persistent atrial fibrillation Diagnosis Current: Yes (3) Coronary artery disease Diagnosis Current: Yes (4) Peripheral vascular disease Diagnosis Current: Yes (5) Systolic congestive heart failure Diagnosis Current: Yes Attendance: The patient, his daughter, her , myself and Dr. Chavis Resuscitation Status: Do Not Resuscitate Discussion: The patient just discharged from [facility] yesterday. He is already back in the hospital. A bedside echocardiogram showed ejection fraction is down to 25 to 30%. He now has aspiration pneumonia. At 79 years old he had an above-knee left sided amputation. We spent a lot of time reviewing what is involved when the patient codes. We explained that ribs are broken, you are intubated and put on a breathing machine and I explained twice that with his l evel of illness, his current state of health and his recent major surgery he would not likely survive cardiac arrest. If he survived his prognosis would be quite poor. The same information was shared by Dr. Chavis as well. After a long discussion the patient decided that he would want to be DNR. His daughter and son-in-law were in agreement. Care Planning Goals: As above Document(s) Completed: None Time Spent: 20 minutes
[2019-11-16] MEDS ORDERED: VANCOMYCIN HCL INJ 1000 MG VIAL IV PRN (21:28)
[2019-11-16] MEDS ORDERED: ALBUMIN HUMAN 25.0 GM/100 ML RTUINJ IV ONE (21:58)
[2019-11-16] MEDS ORDERED: VANCOMYCIN HCL 1,250 MG in DEXTROSE 5%-WATER 250 ML IV ONE (22:00)
[2019-11-16] MEDS: ALBUMIN HUMAN 12.5 GM/50 ML RTUINJ IV SCH ×2 (22:17→23:55)
[2019-11-16] MEDS: GUAIFENESIN 600 MG TABLET.SA PO SCH (22:18)
[2019-11-16] MEDS: AMIODARONE HCL 200 MG TABLET PO SCH (22:18)
[2019-11-16] MEDS: GABAPENTIN 300 MG CAPSULE PO SCH (22:18)
[2019-11-16] MEDS: ATORVASTATIN CALCIUM 40 MG TABLET PO SCH (22:18)
[2019-11-16] MEDS: ASPIRIN 81 MG TABLET, ENT COATED PO SCH (22:19)
[2019-11-16] MEDS: CEFEPIME 1 GM/D5W RTU 1 GM/50 ML RTUPB IV SCH (22:19)
[2019-11-17] MEDS: OXYCODONE HCL IR 5 MG TABLET PO PRN ×2 (03:06→13:38)
[2019-11-17] MEDS: GABAPENTIN 300 MG CAPSULE PO SCH ×3 (05:17→21:20)
[2019-11-17] MEDS: NORMAL SALINE 1000 ML 1,000 ML IV PRN ×2 (05:17→18:10)
[2019-11-17] MEDS: PANTOPRAZOLE SODIUM 40 MG TABLET.DR PO SCH (05:17)
[2019-11-17 06:31] LABS: ABSOLUTE EOSINOPHILS # (AUTO) 0.3 10^3/uL (0.0-0.6); ABSOLUTE LYMPHOCYTES (AUTO) 1.2 10^3/uL (0.5-4.7); ABSOLUTE MONOCYTES (AUTO) 0.6 10^3/uL (0.1-1.4); ABSOLUTE NEUT (AUTO) 5.9 10^3/uL (1.7-8.2); BASOPHILS % (AUTO) 0.6 % (0-2); EOSINOPHILS % (AUTO) 3.3 % (0-6); HEMATOCRIT 25.3 % (37.9-51.0); HEMOGLOBIN 8.5 g/dL (13.5-17.0); LYMPHOCYTES % (AUTO) 14.7 % (13-45); MEAN CORPUSCULAR HEMOGLOBIN 30.5 pg (27.0-33.4); MEAN CORPUSCULAR HGB CONC 33.6 g/dL (32.0-36.0); MEAN CORPUSCULAR VOLUME 91 fl (80-97); PLATELET COUNT 276 10^3/uL (150-450); RED BLOOD COUNT 2.78 10^6/uL (4.35-5.55); RED CELL DISTRIBUTION WIDTH 14.8 % (11.5-14.0); SEGMENTED NEUTROPHILS % (AUTO) 73.4 % (42-78); TOTAL CELLS COUNTED % (AUTO) 100 %; WHITE BLOOD COUNT 8.1 10^3/uL (4.0-10.5)
[2019-11-17 06:58] LABS: ANION GAP 9 (5-19); BLOOD UREA NITROGEN 27 mg/dL (7-20); CARBON DIOXIDE 22 mmol/L (22-30); CHLORIDE 108 mmol/L (98-107); GLUCOSE 88 mg/dL (75-110); POTASSIUM 4.1 mmol/L (3.6-5.0)
--- NOTE | 2019-11-17 08:13 | RADIOLOGY REPORT (SQ) ---
EXAM DESCRIPTION: CHEST SINGLE VIEW COMPLETED DATE/TIME: 11/17/2019 7:42 am REASON FOR STUDY: pneumonia COMPARISON: 11/16/2019 FINDINGS: Single-view AP portable upright. Cardiomegaly with hazy mixed airspace and interstitial edema, fairly stable. Areas of subsegmental a telectasis but no pneumothorax. TECHNICAL DOCUMENTATION: JOB ID: [id number] Reading location - IP/workstation name: [email or web address]
[2019-11-17] MEDS: ASCORBIC ACID 500 MG TABLET PO SCH (09:50)
[2019-11-17] MEDS: BACLOFEN 10 MG TABLET PO SCH ×2 (09:50→17:18)
[2019-11-17] MEDS: DOCUSATE SODIUM 100 MG CAPSULE PO SCH ×2 (09:50→17:18)
[2019-11-17] MEDS: AMIODARONE HCL 200 MG TABLET PO SCH ×2 (09:50→21:20)
[2019-11-17] MEDS: LOSARTAN POTASSIUM 50 MG TABLET PO SCH (09:50)
[2019-11-17] MEDS: FERROUS SULFATE 325 MG TABLET PO SCH (09:50)
[2019-11-17] MEDS: POTASSIUM CHLORIDE 10 MEQ TABLET.ER PO SCH (09:50)
[2019-11-17] MEDS: CEFEPIME 1 GM/D5W RTU 1 GM/50 ML RTUPB IV SCH ×2 (09:50→21:21)
[2019-11-17] MEDS: GUAIFENESIN 600 MG TABLET.SA PO SCH ×2 (09:50→21:20)
[2019-11-17] MEDS: APIXABAN 5 MG TABLET PO SCH ×2 (09:50→17:18)
[2019-11-17] MEDS: METOPROLOL SUCCINATE 25 MG TAB.SR.24H PO SCH (09:50)
[2019-11-17] MEDS: FLUOXETINE HCL 20 MG/5 ML UDCUP PO SCH (10:54)
[2019-11-17] MEDS: VANCOMYCIN HCL 750 MG in DEXTROSE 5%-WATER 250 ML IV SCH (14:57)
--- NOTE | 2019-11-17 15:53 | RADIOLOGY REPORT (SQ) ---
EXAM DESCRIPTION: CT CHEST WITHOUT COMPLETED DATE/TIME: 11/17/2019 2:49 pm REASON FOR STUDY: hypoxia, further assess infiltrates J13 PNEUMONIA DUE TO STREPTOCOCCUS PNEUMONIAE COMPARISON: Radiographs. TECHNIQUE: CT scan performed of the chest without intravenous contrast. Images reviewed with lung, soft tissue and bone windows. Reconstructed coronal and sagittal MPR images reviewed. All images st ored on PACS. All CT scanners at this facility use dose modulation, iterative reconstruction, and/or weight based d osing when appropriate to reduce radiation dose to as low as reasonably achievable (ALARA). [facility]: Dose Right [facility]: CareDose [facility]: Dose Right [facility]: Teradose 4D [facility]: Smart Technologies RADIATION DOSE: CT Rad equipment meets quality standard of care and radiation dose reduction techniq ues were employed. CTDIvol: 14.4 mGy. DLP: 525 mGy-cm. mGy. LIMITATIONS: No technical limitations. FINDINGS: LUNGS AND PLEURA: As seen radiographically, there is mixed airspace and interstitial opaci ty in the bilateral upper lobes, right middle lobe and right lower lobe. Minimally in the left lower lobe. Small -moderate bilateral simple pleural effusions. These look simple. Findings are most christiansen ggestive of congestive failure. HILAR AND MEDIASTINAL STRUCTURES: Mild mediastinal adenopathy with nodes measuring up to 1.2 cm maxim ally short axis. HEART AND VASCULAR STRUCTURES: Cardiac enlargement. Previous CABG. No pericardial effusion or aorti c aneurysm. UPPER ABDOMEN: No significant findings. Limited exam. THYROID AND OTHER SOFT TISSUES: No masses. No adenopathy. BONES: No significant finding. HARDWARE: None in the chest. OTHER: No other significant findings. IMPRESSION: 1. As seen radiographically, there is cardiomegaly with with edema. Bilateral effusions also noted. Findings consistent with CHF. TECHNICAL DOCUMENTATION: JOB ID: [id number] Quality ID # [id number]: Final reports with documentation of one or more dose reduction techniques (e.g., Au tomated exposure control, adjustment of the mA and/or kV according to patient size, use of iterative reconstruction technique) 2010 [employer]- All Rights Reserved Reading location - IP/workstation name: [email or web address]
--- NOTE | 2019-11-17 16:36 | PDOC PROGRESS REPORT ---
Subjective Progress Note for:: 11/17/19 Subjective:: This is an 79 year old male with a past medical history of CAD, atrial fibrillation, congestive heart failure who was discharged recently from [facility] and had a recent left above-knee amputation who was admitted and treated for possible aspiration pneumonia. His chest x-ray showed bilateral interstitial opacities. Patient was started on IV antibiotics. No acute event overnight. Upon encounter, he saturating well on 3 L of nasal cannula. He denies chest pain or acute shortness of breath. Reviewed chest x- ray which is more suggestive for pulmonary congestion. We will pursue a chest CT to further reassess infiltrates noted on chest x-ray. Currently on home dose of Lasix 20 mg daily. Will increase Lasix and will switch p.o. to IV Lasix. Reason For Visit: PNEUMONIA Physical Exam Vital Signs: Temp Pulse Resp BP Pulse Ox 97.3 F 76 18 102/58 L 93 11/17/19 08:16 11/17/19 12:07 11/17/19 12:07 11/17/19 12:07 11/17/19 12:07 Pulse Oximeter Continuous Start: 11/16/19 17:59 Freq: RTQ4 Status: Active Protocol: Document 11/17/19 04:27 CMI (Rec: 11/17/19 04:28 CMI [id number]) Pulse Oximetry Assessment Oxygen Saturation (92-100) 94 Oxygen Flow Rate (L/min) 2 Oxygen Delivery Method Nasal Cannula Fraction of Inspired Oxygen (FIO2) 28 Equipment Usage Equipment in Use Continuous SpO2 Machine # 8 Intake & Output 11/16/19 11/17/19 11/18/19 06:59 06:59 06:59 Intake Total 1000 50 Balance 1000 50 Weight 167 lb 1.766 oz General appearance: PRESENT: no acute distress, well-developed, well-nourished Head exam: PRESENT: atraumatic, normocephalic Eye exam: PRESENT: conjunctiva pink, EOMI, PERRLA. ABSENT: scleral icterus Ear exam: PRESENT: normal external ear exam Mouth exam: PRESENT: moist, tongue midline Neck exam: ABSENT: carotid bruit, JVD, lymphadenopathy, thyromegaly Respiratory exam: PRESENT: rhonchi. ABSENT: rales, wheezes Cardiovascular exam: PRESENT: RRR. ABSENT: diastolic murmur, rubs, systolic murmur Pulses: PRESENT: normal dorsalis pedis pul GI/Abdominal exam: PRESENT: normal bowel sounds, soft. ABSENT: distended, guarding, mass, organolmegaly, rebound, tenderness Rectal exam: PRESENT: deferred Neurological exam: PRESENT: alert, awake, oriented to person, oriented to place, CN II-XII grossly intact. ABSENT: motor sensory deficit Results Laboratory Results: 11/17/19 06:05 11/17/19 06:05 11/16/19 11/16/19 11/16/19 15:22 15:22 15:22 WBC 8.9 RBC 2.69 L Hgb 8.3 L Hct 24.8 L MCV 92 MCH 30.9 MCHC 33.5 RDW 14.5 H Plt Count 294 Seg Neutrophils % 75.3 Carbonic Acid HCO3/H2CO3 Ratio ABG pH ABG pCO2 ABG pO2 ABG HCO3 ABG O2 Saturation ABG Base Excess FiO2 Sodium 139.7 Potassium 4.5 Chloride 107 Carbon Dioxide 25 Anion Gap 8 BUN 30 H Creatinine 1.41 H Est GFR ( Amer) 59 L Glucose 88 Lactic Acid 0.9 Calcium 8.1 L Total Bilirubin 1.0 AST 24 Alkaline Phosphatase 81 Total Protein 6.1 L Albumin 3.1 L Urine Color Urine Appearance Urine pH Ur Specific [place] Urine Protein Urine Glucose (UA) Urine Ketones Urine Blood Urine Nitrite Ur Leukocyte Esterase Urine WBC (Auto) Urine RBC (Auto) 11/16/19 11/16/19 11/17/19 15:55 16:39 06:05 WBC 8.1 RBC 2.78 L Hgb 8.5 L Hct 25.3 L MCV 91 MCH 30.5 MCHC 33.6 RDW 14.8 H Plt Count 276 Seg Neutrophils % 73.4 Carbonic Acid 0.95 L HCO3/H2CO3 Ratio 22:1 ABG pH 7.46 H ABG pCO2 31.5 L ABG pO2 61.0 L ABG HCO3 21.8 ABG O2 Saturation 92.9 L ABG Base Excess -1.6 FiO2 ROOM AIR Sodium Potassium Chloride Carbon Dioxide Anion Gap BUN Creatinine Est GFR ( Amer) Glucose Lactic Acid Calcium Total Bilirubin AST Alkaline Phosphatase Total Protein Albumin Urine Color YELLOW Urine Appearance SLIGHTLY-CLOUDY Urine pH 7.0 Ur Specific [place] 1.017 Urine Protein NEGATIVE Urine Glucose (UA) NEGATIVE Urine Ketones NEGATIVE Urine Blood NEGATIVE Urine Nitrite NEGATIVE Ur Leukocyte Esterase NEGATIVE Urine WBC (Auto) 2 Urine RBC (Auto) 3 11/17/19 06:05 WBC RBC Hgb Hct MCV MCH MCHC RDW Plt Count Seg Neutrophils % Carbonic Acid HCO3/H2CO3 Ratio ABG pH ABG pCO2 ABG pO2 ABG HCO3 ABG O2 Saturation ABG Base Excess FiO2 Sodium 139.4 Potassium 4.1 Chloride 108 H Carbon Dioxide 22 Anion Gap 9 BUN 27 H Creatinine 1.22 Est GFR ( Amer) > 60 Glucose 88 Lactic Acid Calcium 8.0 L Total Bilirubin AST Alkaline Phosphatase Total Protein Albumin Urine Color Urine Appearance Urine pH Ur Specific [place] Urine Protein Urine Glucose (UA) Urine Ketones Urine Blood Urine Nitrite Ur Leukocyte Esterase Urine WBC (Auto) Urine RBC (Auto) 11/16/19 15:22 Troponin I 0.214 NT-Pro-B Natriuret Pep 01334 H Assessment and Plan - Diagnosis (1) Systolic congestive heart failure Qualifiers: Heart failure chronicity: acute on chronic Qualified Code(s): I50.23 - Acute on chronic systolic (congestive) heart failure Is this a current diagnosis for this admission?: Yes Plan: Reviewed chest x-ray which is more suspicious for pulmonary congestion. Will pursue a chest CT to further reassess infiltrates noted on chest x-ray. Currently on home dose of Lasix 20 mg daily. Will increase Lasix and will switch p.o. to IV Lasix. (2) Pneumonia Is this a current diagnosis for this admission?: Yes Plan: On IV antibiotics. (3) Chronic atrial fibrillation Is this a current diagnosis for this admission?: Yes Plan: On amiodarone, metoprolol and Eliquis. - Plan Summary Summary: Patient likely has pneumonia is the primary etiology for admission. He has poor heart function and during his hospitalization in [place] had a transesophageal echo with an ejection fraction of 40%. He does not have a white count but this is likely due to frailty and his recent critical illness. He has a rash on his back that could be related to infection. Blood cultures have been drawn. He will be placed on antibiotics and admitted to the IMCU. We will resume his cardiac medications blood pressure dependent. - Time Time Spent with patient: 25-34 minutes
[2019-11-17] MEDS: TAMSULOSIN HCL 0.4 MG CAP.SR.24H PO SCH (17:18)
--- NOTE | 2019-11-17 17:48 | EKG REPORT ---
SEVERITY:- ABNORMAL ECG - SINUS RHYTHM FIRST DEGREE AV BLOCK PROBABLE LEFT ATRIAL ABNORMALITY LAD, CONSIDER LEFT ANTERIOR FASCICULAR BLOCK PROLONGED QT INTERVAL NONSPECIFIC ST-T CHANGES : Confirmed by: Sushil Quintanilla 17-Nov-2019 17:48:23
[2019-11-17] MEDS: LEVALBUTEROL HCL NEB 1.25 MG/3 ML AMPUL NEB PRN (20:42)
[2019-11-17] MEDS: ASPIRIN 81 MG TABLET, ENT COATED PO SCH (21:20)
[2019-11-17] MEDS: ATORVASTATIN CALCIUM 40 MG TABLET PO SCH (21:20)
[2019-11-17] MEDS: FUROSEMIDE INJ/PF 20 MG/2 ML SDV IV SCH (21:21)
[2019-11-18] MEDS: VANCOMYCIN HCL 750 MG in DEXTROSE 5%-WATER 250 ML IV SCH ×2 (05:10→17:08)
[2019-11-18] MEDS: PANTOPRAZOLE SODIUM 40 MG TABLET.DR PO SCH (05:10)
[2019-11-18] MEDS: GABAPENTIN 300 MG CAPSULE PO SCH ×3 (05:10→21:54)
[2019-11-18] MEDS: FLUOXETINE HCL 20 MG/5 ML UDCUP PO SCH (09:55)
[2019-11-18] MEDS: DOCUSATE SODIUM 100 MG CAPSULE PO SCH ×2 (09:56→17:10)
[2019-11-18] MEDS: METOPROLOL SUCCINATE 25 MG TAB.SR.24H PO SCH (09:56)
[2019-11-18] MEDS: LOSARTAN POTASSIUM 50 MG TABLET PO SCH (09:56)
[2019-11-18] MEDS: FERROUS SULFATE 325 MG TABLET PO SCH (09:56)
[2019-11-18] MEDS: ASCORBIC ACID 500 MG TABLET PO SCH (09:56)
[2019-11-18] MEDS: AMIODARONE HCL 200 MG TABLET PO SCH ×2 (09:56→21:54)
[2019-11-18] MEDS: CEFEPIME 1 GM/D5W RTU 1 GM/50 ML RTUPB IV SCH ×2 (09:57→21:51)
[2019-11-18] MEDS: BACLOFEN 10 MG TABLET PO SCH ×2 (09:57→17:09)
[2019-11-18] MEDS: GUAIFENESIN 600 MG TABLET.SA PO SCH ×2 (09:57→21:54)
[2019-11-18] MEDS: APIXABAN 5 MG TABLET PO SCH ×2 (09:57→17:10)
[2019-11-18] MEDS: FUROSEMIDE INJ/PF 20 MG/2 ML SDV IV SCH (09:58)
[2019-11-18] MEDS ORDERED: FUROSEMIDE 20 MG TABLET PO SCH (10:00)
[2019-11-18] MEDS: POTASSIUM CHLORIDE 10 MEQ TABLET.ER PO SCH (10:07)
[2019-11-18 11:11] LABS: ANION GAP 9 (5-19); BLOOD UREA NITROGEN 27 mg/dL (7-20); CARBON DIOXIDE 21 mmol/L (22-30); CHLORIDE 108 mmol/L (98-107); GLUCOSE 111 mg/dL (75-110); POTASSIUM 4.2 mmol/L (3.6-5.0)
--- NOTE | 2019-11-18 14:53 | PDOC PROGRESS REPORT ---
Subjective Progress Note for:: 11/18/19 Subjective:: This is an 79 year old male with a past medical history of CAD, atrial fibrillation, congestive heart failure who was discharged recently from [facility] and had a recent left above-knee amputation who was admitted and treated for possible aspiration pneumonia. His chest x-ray showed bilateral interstitial opacities. Patient was started on IV antibiotics. 11/17: Upon encounter, he saturating well on 3 L of nasal cannula. He denies chest pain or acute shortness of breath. Reviewed chest x-ray which is more suggestive for pulmonary congestion. We will pursue a chest CT to further reassess infiltrates noted on chest x-ray. Currently on home dose of Lasix 20 mg daily. Will increase Lasix and will switch p.o. to IV Lasix. 11/18: No acute event overnight. Chest CT did show pulmonary congestion with pleural effusions. Upon encounter, he is saturating well on nasal cannula. Denies chest pain or acute SOB. Will increase IV Lasix today. Reason For Visit: PNEUMONIA Physical Exam Vital Signs: Temp Pulse Resp BP Pulse Ox 97.9 F 75 16 106/57 L 93 11/18/19 11:12 11/18/19 11:12 11/18/19 11:12 11/18/19 11:12 11/18/19 11:12 Pulse Oximeter Continuous Start: 11/16/19 17:59 Freq: RTQ4 Status: Active Protocol: Document 11/18/19 12:00 [facility] (Rec: 11/18/19 12:17 [facility] [email or web address]) Pulse Oximetry Assessment Equipment Usage Equipment Standby Continuous SpO2 Machine # 8 Intake & Output 11/17/19 11/18/19 11/19/19 06:59 06:59 06:59 Intake Total 1000 1470 120 Balance 1000 1470 120 Weight 167 lb 1.766 oz 172 lb 13.478 oz General appearance: PRESENT: no acute distress, well-developed, well-nourished Head exam: PRESENT: atraumatic, normocephalic Eye exam: PRESENT: conjunctiva pink, EOMI, PERRLA. ABSENT: scleral icterus Ear exam: PRESENT: normal external ear exam Mouth exam: PRESENT: moist, tongue midline Neck exam: ABSENT: carotid bruit, JVD, lymphadenopathy, thyromegaly Respiratory exam: PRESENT: rhonchi. ABSENT: rales, wheezes Cardiovascular exam: PRESENT: RRR. ABSENT: diastolic murmur, rubs, systolic murmur Pulses: PRESENT: normal dorsalis pedis pul GI/Abdominal exam: PRESENT: normal bowel sounds, soft. ABSENT: distended, guarding, mass, organolmegaly, rebound, tenderness Rectal exam: PRESENT: deferred Neurological exam: PRESENT: alert, awake, oriented to person, oriented to place, oriented to time, oriented to situation, CN II-XII grossly intact. ABSENT: motor sensory deficit Results Laboratory Results: 11/17/19 06:05 11/18/19 09:48 11/18/19 09:48 Sodium 138.3 Potassium 4.2 Chloride 108 H Carbon Dioxide 21 L Anion Gap 9 BUN 27 H Creatinine 1.29 H Est GFR ( Amer) > 60 Glucose 111 H Calcium 8.0 L 11/16/19 15:22 Troponin I 0.214 NT-Pro-B Natriuret Pep 22628 H Impressions: Chest CT 11/17/19 09:25 IMPRESSION: 1. As seen radiographically, there is cardiomegaly with with edema. Bilateral effusions also noted. Findings consistent with CHF. Assessment and Plan - Diagnosis (1) Systolic congestive heart failure Qualifiers: Heart failure chronicity: acute on chronic Qualified Code(s): I50.23 - Acute on chronic systolic (congestive) heart failure Is this a current diagnosis for this admission?: Yes Plan: 11/17: Reviewed chest x-ray which is more suspicious for pulmonary congestion. Will pursue a chest CT to further reassess infiltrates noted on chest x-ray. Currently on home dose of Lasix 20 mg daily. Will increase Lasix and will switch p.o. to IV Lasix. 11/19: Chest CT did show pulmonary congestion with pleural effusions. Increase IV Lasix to 40 mg q12. (2) Pneumonia Is this a current diagnosis for this admission?: Yes Plan: On IV antibiotics. (3) Chronic atrial fibrillation Is this a current diagnosis for this admission?: Yes Plan: On amiodarone, metoprolol and Eliquis. - Plan Summary Summary: Patient likely has pneumonia is the primary etiology for admission. He has poor heart function and during his hospitalization in [place] had a transesophageal echo with an ejection fraction of 40%. He does not have a white count but this is likely due to frailty and his recent critical illness. He has a rash on his back that could be related to infection. Blood cultures have been drawn. He will be placed on antibiotics and admitted to the IMCU. We will resume his cardiac medications blood pressure dependent. - Time Time Spent with patient: 25-34 minutes
[2019-11-18 16:04] LABS: VANCOMYCIN,TROUGH 16.7 ug/mL (5.0-20.0)
[2019-11-18] MEDS: TAMSULOSIN HCL 0.4 MG CAP.SR.24H PO SCH (17:09)
[2019-11-18] MEDS: FUROSEMIDE INJ/PF 40 MG/4 ML SDV IV SCH (21:53)
[2019-11-18] MEDS: ASPIRIN 81 MG TABLET, ENT COATED PO SCH (21:54)
[2019-11-18] MEDS: LEVALBUTEROL HCL NEB 1.25 MG/3 ML AMPUL NEB PRN (21:54)
[2019-11-18] MEDS: OXYCODONE HCL IR 5 MG TABLET PO PRN (21:54)
[2019-11-18] MEDS: ATORVASTATIN CALCIUM 40 MG TABLET PO SCH (21:54)
[2019-11-18] MEDS ORDERED: FUROSEMIDE INJ/PF 20 MG/2 ML SDV IV SCH (22:00)
[2019-11-18] MEDS ORDERED: METHYLPREDNISOLONE INJ 40 MG/1 ML SDV IV ONE (23:15)
[2019-11-18] MEDS: LORAZEPAM INJ 2 MG/1 ML VIAL IV PRN (23:23)
[2019-11-19] MEDS: VANCOMYCIN HCL 750 MG in DEXTROSE 5%-WATER 250 ML IV SCH ×2 (03:41→18:27)
[2019-11-19] MEDS: LORAZEPAM INJ 2 MG/1 ML VIAL IV PRN (03:41)
[2019-11-19] MEDS: GABAPENTIN 300 MG CAPSULE PO SCH ×3 (05:24→22:31)
[2019-11-19] MEDS: PANTOPRAZOLE SODIUM 40 MG TABLET.DR PO SCH (05:25)
[2019-11-19 06:11] LABS: HEMATOCRIT 25.3 % (37.9-51.0); HEMOGLOBIN 8.6 g/dL (13.5-17.0); MEAN CORPUSCULAR HEMOGLOBIN 30.7 pg (27.0-33.4); MEAN CORPUSCULAR HGB CONC 34.1 g/dL (32.0-36.0); MEAN CORPUSCULAR VOLUME 90 fl (80-97); PLATELET COUNT 261 10^3/uL (150-450); RED BLOOD COUNT 2.81 10^6/uL (4.35-5.55); WHITE BLOOD COUNT 8.2 10^3/uL (4.0-10.5)
[2019-11-19 06:29] LABS: ANION GAP 10 (5-19); BLOOD UREA NITROGEN 25 mg/dL (7-20); CARBON DIOXIDE 20 mmol/L (22-30); CHLORIDE 108 mmol/L (98-107); GLUCOSE 149 mg/dL (75-110); POTASSIUM 4.6 mmol/L (3.6-5.0)
[2019-11-19 06:40] LABS: ABSOLUTE MONOCYTES # (MANUAL) 0.1 10^3/uL (0.1-1.4); BAND NEUTROPHILS % (MANUAL) 1 % (3-5); BASOPHILS % (MANUAL) 0 % (0-2); EOSINOPHILS % (MANUAL) 0 % (0-6); LYMPHOCYTES % (MANUAL) 0 % (13-45); MONOCYTES % (MANUAL) 1 % (3-13); SEGMENTED NEUTROPHILS % (MAN) 98 % (42-78); TOTAL CELLS COUNTED 100
[2019-11-19 06:41] LABS: PLATELET COMMENT ADEQUATE
[2019-11-19 06:42] LABS: ANISOCYTOSIS SLIGHT
--- NOTE | 2019-11-19 09:58 | RADIOLOGY REPORT (SQ) ---
EXAM DESCRIPTION: CHEST SINGLE VIEW COMPLETED DATE/TIME: 11/19/2019 8:33 am REASON FOR STUDY: reassess congestion COMPARISON: Chest films 11/03/2019, 11/16/2019, 11/17/2019 CT chest 11/17/2019 EXAM PARAMETERS: NUMBER OF VIEWS: One view. TECHNIQUE: Single frontal radiographic view of the chest acquired. RADIATION DOSE: NA LIMITATIONS: None. FINDINGS: LUNGS AND PLEURA: Hazy opacity over both lung bases from trace bilateral pleural effusions . There is persistent airspace disease in the right mid and lower lung and left retrocardiac region, ed tiffany versus pneumonia. No pneumothorax MEDIASTINUM AND HILAR STRUCTURES: No masses. Contour normal. HEART AND VASCULAR STRUCTURES: Stable moderate cardiomegaly. Old sternotomy for CABG BONES: No acute findings. HARDWARE: Old sternotomy OTHER: No other significant finding. IMPRESSION: Trace persistent bilateral pleural effusions Bibasilar airspace disease edema versus pneumonia TECHNICAL DOCUMENTATION: JOB ID: [id number] [employer]- All Rights Reserved Reading location - IP/workstation name: [email or web address]
[2019-11-19] MEDS: LEVALBUTEROL HCL NEB 1.25 MG/3 ML AMPUL NEB PRN (11:15)
[2019-11-19] MEDS: ASCORBIC ACID 500 MG TABLET PO SCH (13:11)
[2019-11-19] MEDS: CEFEPIME 1 GM/D5W RTU 1 GM/50 ML RTUPB IV SCH ×2 (13:11→22:24)
[2019-11-19] MEDS: BACLOFEN 10 MG TABLET PO SCH ×2 (13:12→18:27)
[2019-11-19] MEDS: FUROSEMIDE INJ/PF 40 MG/4 ML SDV IV SCH ×2 (13:12→22:31)
[2019-11-19] MEDS: AMIODARONE HCL 200 MG TABLET PO SCH ×2 (13:12→22:30)
[2019-11-19] MEDS: FERROUS SULFATE 325 MG TABLET PO SCH (13:12)
[2019-11-19] MEDS: APIXABAN 5 MG TABLET PO SCH ×2 (13:12→18:28)
[2019-11-19] MEDS: POTASSIUM CHLORIDE 10 MEQ TABLET.ER PO SCH (13:13)
[2019-11-19] MEDS: FLUOXETINE HCL 20 MG/5 ML UDCUP PO SCH (13:18)
[2019-11-19] MEDS: METOPROLOL SUCCINATE 25 MG TAB.SR.24H PO SCH (13:18)
[2019-11-19] MEDS: LOSARTAN POTASSIUM 50 MG TABLET PO SCH (13:18)
[2019-11-19] MEDS: GUAIFENESIN 600 MG TABLET.SA PO SCH ×2 (13:18→22:30)
[2019-11-19] MEDS: DOCUSATE SODIUM 100 MG CAPSULE PO SCH ×2 (13:19→18:24)
--- NOTE | 2019-11-19 15:12 | PDOC PROGRESS REPORT ---
Subjective Progress Note for:: 11/19/19 Subjective:: This is an 79 year old male with a past medical history of CAD, atrial fibrillation, congestive heart failure who was discharged recently from [facility] and had a recent left above-knee amputation who was admitted and treated for possible aspiration pneumonia. His chest x-ray showed bilateral interstitial opacities. Patient was started on IV antibiotics. 11/17: Upon encounter, he saturating well on 3 L of nasal cannula. He denies chest pain or acute shortness of breath. Reviewed chest x-ray which is more suggestive for pulmonary congestion. We will pursue a chest CT to further reassess infiltrates noted on chest x-ray. Currently on home dose of Lasix 20 mg daily. Will increase Lasix and will switch p.o. to IV Lasix. 11/18: No acute event overnight. Chest CT did show pulmonary congestion with pleural effusions. Upon encounter, he is saturating well on nasal cannula. Denies chest pain or acute SOB. Will increase IV Lasix today. Will also check amiodarone level. 11/19: Patient had an episode of agitation last night and was apparently given Ativan. Upon encounter, he is sleepy likely from effect of Ativan. He is arousable and is oriented to person. He saturating well on BiPAP. Reason For Visit: PNEUMONIA Physical Exam Vital Signs: Temp Pulse Resp BP Pulse Ox 97.5 F 78 20 119/50 L 94 11/19/19 12:29 11/19/19 12:29 11/19/19 13:58 11/19/19 12:29 11/19/19 13:58 Pulse Oximeter Continuous Start: 11/16/19 17:59 Freq: RTQ4 Status: Active Protocol: Document 11/19/19 13:58 [facility] (Rec: 11/19/19 13:58 [facility] [id number]) Pulse Oximetry Assessment Oxygen Saturation (92-100) 94 Oxygen Delivery Method Bi-pap Fraction of Inspired Oxygen (FIO2) 32 Equipment Usage Equipment in Use Continuous SpO2 Machine # 8 Intake & Output 11/18/19 11/19/19 11/20/19 06:59 06:59 06:59 Intake Total 1720 1460 Output Total 1225 Balance 1720 235 Weight 172 lb 13.478 oz 182 lb 1.629 oz General appearance: PRESENT: no acute distress, well-developed, well-nourished Head exam: PRESENT: atraumatic, normocephalic Eye exam: PRESENT: conjunctiva pink, EOMI, PERRLA. ABSENT: scleral icterus Ear exam: PRESENT: normal external ear exam Mouth exam: PRESENT: moist, tongue midline Neck exam: ABSENT: carotid bruit, JVD, lymphadenopathy, thyromegaly Respiratory exam: PRESENT: rhonchi. ABSENT: rales, wheezes Cardiovascular exam: ABSENT: systolic murmur Pulses: PRESENT: normal dorsalis pedis pul GI/Abdominal exam: PRESENT: normal bowel sounds, soft. ABSENT: distended, guarding, mass, organolmegaly, rebound, tenderness Rectal exam: PRESENT: deferred Results Laboratory Results: 11/19/19 05:50 11/19/19 05:50 11/18/19 11/19/19 11/19/19 15:03 05:50 05:50 WBC 8.2 RBC 2.81 L Hgb 8.6 L Hct 25.3 L MCV 90 MCH 30.7 MCHC 34.1 RDW 15.0 H Plt Count 261 Seg Neutrophils % Not Reportable Sodium 137.8 Potassium 4.6 Chloride 108 H Carbon Dioxide 20 L Anion Gap 10 BUN 25 H Creatinine 1.52 H 1.27 H Est GFR ( Amer) 54 L > 60 Glucose 149 H Calcium 8.0 L 11/16/19 15:22 Troponin I 0.214 NT-Pro-B Natriuret Pep 21721 H Impressions: Chest CT 11/17/19 09:25 IMPRESSION: 1. As seen radiographically, there is cardiomegaly with with edema. Bilateral effusions also noted. Findings consistent with CHF. Chest X-Ray 11/19/19 07:00 IMPRESSION: Trace persistent bilateral pleural effusions Bibasilar airspace disease edema versus pneumonia Assessment and Plan - Diagnosis (1) Systolic congestive heart failure Qualifiers: Heart failure chronicity: acute on chronic Qualified Code(s): I50.23 - Acute on chronic systolic (congestive) heart failure Is this a current diagnosis for this admission?: Yes Plan: 11/17: Reviewed chest x-ray which is more suspicious for pulmonary congestion. Will pursue a chest CT to further reassess infiltrates noted on chest x-ray. Currently on home dose of Lasix 20 mg daily. Will increase Lasix and will switch p.o. to IV Lasix. 11/18: Chest CT did show pulmonary congestion with pleural effusions. Increase IV Lasix to 40 mg q12. 11/19: Continue IV Lasix at 40 mg q12 for now. Creatinine stable. (2) Pneumonia Is this a current diagnosis for this admission?: Yes Plan: Continue IV antibiotics. (3) Chronic atrial fibrillation Is this a current diagnosis for this admission?: Yes Plan: On amiodarone, metoprolol and Eliquis. - Plan Summary Summary: Patient likely has pneumonia is the primary etiology for admission. He has poor heart function and during his hospitalization in [place] had a transesophageal echo with an ejection fraction of 40%. He does not have a white count but this is likely due to frailty and his recent critical illness. He has a rash on his back that could be related to infection. Blood cultures have been drawn. He will be placed on antibiotics and admitted to the IMCU. We will resume his cardiac medications blood pressure dependent. - Time Time Spent with patient: 25-34 minutes
[2019-11-19] MEDS: TAMSULOSIN HCL 0.4 MG CAP.SR.24H PO SCH (18:27)
[2019-11-19] MEDS: PREDNISONE 10 MG TABLET PO SCH (18:28)
[2019-11-19] MEDS: ATORVASTATIN CALCIUM 40 MG TABLET PO SCH (22:30)
[2019-11-19] MEDS: ASPIRIN 81 MG TABLET, ENT COATED PO SCH (22:30)
[2019-11-20] MEDS: ACETAMINOPHEN 325 MG TABLET PO PRN ×2 (00:36→15:23)
[2019-11-20] MEDS: VANCOMYCIN HCL 750 MG in DEXTROSE 5%-WATER 250 ML IV SCH ×2 (04:36→14:04)
[2019-11-20] MEDS: OXYCODONE HCL IR 5 MG TABLET PO PRN (04:51)
[2019-11-20] MEDS: GABAPENTIN 300 MG CAPSULE PO SCH ×3 (05:45→21:26)
[2019-11-20] MEDS: PANTOPRAZOLE SODIUM 40 MG TABLET.DR PO SCH (05:45)
--- NOTE | 2019-11-20 09:29 | XCELERA REPORT ---
[address] [address] Transthoracic Echocardiogram Report Name: TJ RAMOS Age: 79 yrs Gender: Male : 1940 Patient Status: Inpatient Patient Location: [address] [place], [place] [id number] Study Date: 11/18/2019 03:34 PM History: CHF Height: 72 in Weight: 172 lb BSA: 2.0 m2 Procedure: A complete two-dimensional transthoracic echocardiogram was performed (2D, M-mode, spectral and color flow Doppler). The study was technically difficult with many images being suboptimal in quality. Reason For Study: SOB, CHF, assess LVEF History: CHF. Ordering Physician: BONI GUIDO Performed By: Tanya Talavera Interpretation Summary The study was technically difficult with many images being suboptimal in quality. Left ventricular systolic function is moderate to severely reduced. The Ejection Fraction estimate is 20-25% The right ventricular systolic function is mild to moderately reduced. There is a mild to moderate amount of mitral regurgitation There is no aortic valve stenosis There is a mild to moderate amount of tricuspid regurgitation There is mild to moderate pulmonary hypertension by echo Minimal pericardial effusion. MMode/2D Measurements & Calculations RVDd: 2.4 cm LVIDd: 6.0 cm FS: 10.4 % Ao root diam: 2.9 cm IVSd: 1.0 cm LVIDs: 5.4 cm EDV(Teich): 180.9 ml Ao root area: 6.6 cm2 LVPWd: 1.1 cm ESV(Teich): 140.5 ml LA dimension: 4.7 cm EF(Teich): 22.3 % Doppler Measurements & Calculations MV E max chi: MV P1/2t max chi: Ao V2 max: LV V1 max P.4 cm/sec 129.0 cm/sec 132.5 cm/sec 3.6 mmHg MV A max chi: MV P1/2t: 45.2 msec Ao max P.0 mmHgLV V1 max: 42.4 cm/sec MVA(P1/2t): 4.9 cm2 95.3 cm/sec MV E/A: 2.3 MV dec slope: 835.3 cm/sec2 MV dec time: 0.13 sec PI end-d chi: TR max chi: MV P1/2t-pr_phl: 194.1 cm/sec 334.5 cm/sec 45.2 msec TR max P.7 mmHg Left Ventricle The left ventricle is moderately to severly dilated. Left ventricular systolic function is moderate to severely reduced. The Ejection Fraction estimate is 20-25%. LV diastolic function could not be adequately assessed. There is moderate to severe global hypokinesis of the left ventricle. Right Ventricle The right ventricle is mildly dilated. The right ventricular systolic function is mild to moderately reduced. Mitral Valve The mitral valve is grossly normal. There is a mild to moderate amount of mitral regurgitation. Aortic Valve The aortic valve opens well. The aortic valve is trileaflet. The aortic valve is sclerotic, but shows no functional abnormality. The aortic valve is calcified. There is no aortic valve stenosis. No aortic regurgitation is present. Tricuspid Valve The tricuspid valve is not well visualized, but is grossly normal. There is a mild to moderate amount of tricuspid regurgitation. Right ventricular systolic pressure is estimated to be elevated at 40-50mmHg. There is mild to moderate pulmonary hypertension by echo. Pulmonic Valve The pulmonic valve is not well seen, but is grossly normal. There is a moderate amount of pulmonic regurgitation. Great Vessels The aortic root is not well visualized but is probably normal size. The inferior vena cava appeared normal. Effusions Minimal pericardial effusion. : BONI GUIDO Anil
[2019-11-20] MEDS: APIXABAN 5 MG TABLET PO SCH ×2 (10:42→18:05)
[2019-11-20] MEDS: POTASSIUM CHLORIDE 10 MEQ TABLET.ER PO SCH (10:42)
[2019-11-20] MEDS: PREDNISONE 10 MG TABLET PO SCH ×2 (10:42→18:06)
[2019-11-20] MEDS: BACLOFEN 10 MG TABLET PO SCH ×2 (10:42→18:06)
[2019-11-20] MEDS: LOSARTAN POTASSIUM 50 MG TABLET PO SCH (10:42)
[2019-11-20] MEDS: GUAIFENESIN 600 MG TABLET.SA PO SCH ×2 (10:42→21:26)
[2019-11-20] MEDS: ASCORBIC ACID 500 MG TABLET PO SCH (10:42)
[2019-11-20] MEDS: AMIODARONE HCL 200 MG TABLET PO SCH ×2 (10:42→21:26)
[2019-11-20] MEDS: METOPROLOL SUCCINATE 25 MG TAB.SR.24H PO SCH (10:42)
[2019-11-20] MEDS: DOCUSATE SODIUM 100 MG CAPSULE PO SCH ×2 (10:42→18:06)
[2019-11-20] MEDS: FUROSEMIDE INJ/PF 40 MG/4 ML SDV IV SCH (10:43)
[2019-11-20] MEDS: FERROUS SULFATE 325 MG TABLET PO SCH (10:43)
[2019-11-20] MEDS: CEFEPIME 1 GM/D5W RTU 1 GM/50 ML RTUPB IV SCH ×2 (10:43→21:27)
[2019-11-20] MEDS: FLUOXETINE HCL 20 MG/5 ML UDCUP PO SCH (10:46)
--- NOTE | 2019-11-20 15:11 | PDOC PROGRESS REPORT ---
Subjective Progress Note for:: 11/20/19 Subjective:: This is an 79 year old male with a past medical history of CAD, atrial fibrillation, congestive heart failure who was discharged recently from [facility] and had a recent left above-knee amputation who was admitted and treated for possible aspiration pneumonia. His chest x-ray showed bilateral interstitial opacities. Patient was started on IV antibiotics. 11/17: Upon encounter, he saturating well on 3 L of nasal cannula. He denies chest pain or acute shortness of breath. Reviewed chest x-ray which is more suggestive for pulmonary congestion. We will pursue a chest CT to further reassess infiltrates noted on chest x-ray. Currently on home dose of Lasix 20 mg daily. Will increase Lasix and will switch p.o. to IV Lasix. 11/18: No acute event overnight. Chest CT did show pulmonary congestion with pleural effusions. Upon encounter, he is saturating well on nasal cannula. Denies chest pain or acute SOB. Will increase IV Lasix today. Will also check amiodarone level. 11/19: Patient had an episode of agitation last night and was apparently given Ativan. Upon encounter, he is sleepy likely from effect of Ativan. He is arousable and is oriented to person. He saturating well on BiPAP. 11/20: No acute events overnight. Echo showed reduced EF of 20 to 25%. Upon encounter this morning, he appears awake and is coherent. He is at his baseline mentation. He says he feels much better today. Denies chest pain or shortness of breath. He has been diuresing well. Blood pressures running on the low end. Will decrease IV Lasix. Reason For Visit: PNEUMONIA Physical Exam Vital Signs: Temp Pulse Resp BP Pulse Ox 97.4 F 69 20 82/48 L 95 11/20/19 12:56 11/20/19 12:56 11/20/19 12:56 11/20/19 12:56 11/20/19 14:09 Pulse Oximeter Continuous Start: 11/16/19 17:59 Freq: RTQ4 Status: Active Protocol: Document 11/20/19 14:09 [facility] (Rec: 11/20/19 14:13 [facility] [id number]) Additional RT Notes Other Patient at this time indicated he doesn't feel good. Patient explained he feels a little nauseauos. Patient was informed he will not be placed on bipap at this time due to him feeling as if he will vomit. Pulse Oximetry Assessment Oxygen Saturation (92-100) 95 Oxygen Flow Rate (L/min) 2 Oxygen Delivery Method Nasal Cannula Equipment Usage Equipment in Use Continuous SpO2 Machine # 8 Intake & Output 11/19/19 11/20/19 11/21/19 06:59 06:59 06:59 Intake Total 1460 590 300 Output Total 1225 2475 Balance 235 -1885 300 Weight 182 lb 1.629 oz 176 lb 9.444 oz General appearance: PRESENT: no acute distress, well-developed, well-nourished Head exam: PRESENT: atraumatic, normocephalic Eye exam: PRESENT: conjunctiva pink, EOMI, PERRLA. ABSENT: scleral icterus Ear exam: PRESENT: normal external ear exam Mouth exam: PRESENT: moist, tongue midline Neck exam: ABSENT: carotid bruit, JVD, lymphadenopathy, thyromegaly Respiratory exam: PRESENT: rhonchi. ABSENT: rales, wheezes Cardiovascular exam: PRESENT: RRR. ABSENT: diastolic murmur, rubs, systolic murmur Pulses: PRESENT: normal dorsalis pedis pul GI/Abdominal exam: PRESENT: normal bowel sounds, soft. ABSENT: distended, guarding, mass, organolmegaly, rebound, tenderness Rectal exam: PRESENT: deferred Extremities exam: PRESENT: other - +left AKA stump Neurological exam: PRESENT: alert, awake, oriented to person, oriented to place, oriented to time, oriented to situation, CN II-XII grossly intact. ABSENT: motor sensory deficit Results Laboratory Results: 11/19/19 05:50 11/19/19 05:50 11/16/19 15:22 Troponin I 0.214 NT-Pro-B Natriuret Pep 19697 H Impressions: Chest CT 11/17/19 09:25 IMPRESSION: 1. As seen radiographically, there is cardiomegaly with with edema. Bilateral effusions also noted. Findings consistent with CHF. Chest X-Ray 11/19/19 07:00 IMPRESSION: Trace persistent bilateral pleural effusions Bibasilar airspace disease edema versus pneumonia Assessment and Plan - Diagnosis (1) Systolic congestive heart failure Qualifiers: Heart failure chronicity: acute on chronic Qualified Code(s): I50.23 - Acute on chronic systolic (congestive) heart failure Is this a current diagnosis for this admission?: Yes Plan: 11/17: Reviewed chest x-ray which is more suspicious for pulmonary congestion. Will pursue a chest CT to further reassess infiltrates noted on chest x-ray. Currently on home dose of Lasix 20 mg daily. Will increase Lasix and will switch p.o. to IV Lasix. 11/18: Chest CT did show pulmonary congestion with pleural effusions. Increase IV Lasix to 40 mg q12. 11/19: Continue IV Lasix at 40 mg q12 for now. Creatinine stable. 11/20: Echo showed reduced EF of 20 to 25%. Decrease IV Lasix to 20 mg q12. (2) Pneumonia Is this a current diagnosis for this admission?: Yes Plan: Continue IV antibiotics. (3) Chronic atrial fibrillation Is this a current diagnosis for this admission?: Yes Plan: On amiodarone, metoprolol and Eliquis. - Plan Summary Summary: Patient likely has pneumonia is the primary etiology for admission. He has poor heart function and during his hospitalization in [place] had a transesophageal echo with an ejection fraction of 40%. He does not have a white count but this is likely due to frailty and his recent critical illness. He has a rash on his back that could be related to infection. Blood cultures have been drawn. He will be placed on antibiotics and admitted to the IMCU. We will resume his cardiac medications blood pressure dependent. - Time Time Spent with patient: 25-34 minutes
[2019-11-20 15:37] LABS: AMIODARON SERUM 0.5 ug/mL (1.0-2.5); NORAMIODARONE SERUM 0.3 ug/mL (1.0-2.5)
[2019-11-20] MEDS: TAMSULOSIN HCL 0.4 MG CAP.SR.24H PO SCH (18:05)
--- NOTE | 2019-11-20 19:49 | PDOC CONSULTATION ---
Consultation Consult Date: 11/20/19 Provider Consulted: JUAN HINOJOSA Consult reason:: Congestive heart failure, LV dysfunction History of Present Illness Admission Date/PCP: 11/16/19 18:21 PARAM BROWN MD Patient complains of: Shortness of breath History of Present Illness: TJ RAMOS is a 79 year old male With the following active problems 1. Coronary artery disease 2. 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 Systemic hypertension 4. Dyslipidemia 5. Atrial fibrillation 6. Systemic anticoagulation Patient is not a great historian. Apparently had CABG 10 years ago. There is mention of left ventricular dysfunction with ejection fraction in the 40% range which is apparently a relatively new diagnosis for him. Further documentation is necessary. Patient was admitted with respiratory distress. He is being treated for pneumonia as well as decompensated congestive heart failure. He has made slow improvement. Presently his diuretics have been cut back as his blood pressures have been lower. Transthoracic echocardiogram was performed which showed severe left ventricular dysfunction with ejection fraction estimated approximately 20%. Patient is relatively symptom-free at the time of my evaluation. He endorses improvement in the symptoms including dyspnea. Telemetry has shown sinus rhythm. Past Medical History Cardiac Medical History: Reports: Atrial Fibrillation, Congestive Heart Failure, Coronary Artery Disease, Hypertension, Peripheral Vascular Disease Pulmonary Medical History: Reports: Chronic Obstructive Pulmonary Disease (COPD) GI Medical History: Reports: Other - Hiatal hernia Musculoskeltal Medical History: Reports: Arthritis Past Surgical History Past Surgical History: Reports: Other - Amputation Social History Lives with: Usp Smoking Status: Former Smoker Electronic Cigarette use?: No Last Time Smoked: 30 years ago Frequency of Alcohol Use: None Hx Recreational Drug Use: No Drugs: None Hx Prescription Drug Abuse: No - Advance Directive Resuscitation Status: Do Not Resuscitate Family History Family History: Reviewed & Not Pertinent Parental Family History Reviewed: No - No familial illnesses Children Family History Reviewed: NA Sibling(s) Family History Reviewed.: NA Medication/Allergy Home Medications: Aspirin [Adult Aspirin Regimen] 81 mg PO DAILY 11/03/19 Atorvastatin Calcium [Lipitor 40 mg Tablet] 40 mg PO QHS 11/03/19 Fluoxetine HCl 10 mg PO DAILY 11/03/19 Furosemide [Lasix 20 mg Tablet] 20 mg PO QAM 11/03/19 Gabapentin [Neurontin 300 mg Capsule] 300 mg PO TID 11/03/19 Losartan Potassium [Cozaar 50 mg Tablet] 50 mg PO DAILY 11/03/19 Metoprolol Succinate 25 mg PO QHS 11/03/19 Oxycodone HCl [Oxy-Ir 5 mg Tablet] 5 mg PO Q8HP PRN 11/03/19 Potassium Chloride 10 meq PO DAILY 11/03/19 Amiodarone HCl [Cordarone 200 mg Tablet] 200 mg PO BID 11/17/19 Apixaban [Eliquis 5 mg Tablet] 5 mg PO BID 11/17/19 Ascorbic Acid [Vitamin C 500 mg Tablet] 500 mg PO DAILY 11/17/19 Baclofen 5 mg PO BID 11/17/19 Docusate Sodium [Colace 100 mg Capsule] 100 mg PO BID 11/17/19 Ferrous Sulfate [Albafort] 325 mg PO DAILY 11/17/19 Nitroglycerin [Nitrostat 0.4 mg (1/150 Gr) Tabs 25/Bottle] 1 tab SL Q5MP PRN 11/17/19 Amlodipine Besylate [Norvasc 10 mg Tablet] 10 mg PO DAILY 11/19/19 Aspirin [Ecotrin 81 mg EC Tablet] 81 mg PO DAILY 11/19/19 Clonidine HCl 0.3 mg PO BID 11/19/19 Fluticasone Propionate [Flovent Diskus] 2 sprays IN DAILY 11/19/19 Folic Acid 1 mg PO DAILY 11/19/19 Hydrochlorothiazide [Hydrodiuril 25 mg Tablet] 25 mg PO DAILY 11/19/19 Olmesartan Medoxomil 40 mg PO DAILY 11/19/19 Thiamine HCl 100 mg PO DAILY 11/19/19 Allergies/Adverse Reactions: No Known Allergies Allergy (Verified 11/03/19 12:46) Review of Systems Constitutional: PRESENT: as per HPI Cardiovascular: PRESENT: dyspnea on exertion Gastrointestinal: PRESENT: as per HPI Physical Exam Vital Signs: Temp Pulse Resp BP Pulse Ox 97.5 F 114 H 18 109/88 H 98 11/20/19 14:53 11/20/19 14:53 11/20/19 14:53 11/20/19 14:53 11/20/19 16:12 Pulse Oximeter Continuous Start: 11/16/19 17:59 Freq: RTQ4 Status: Active Protocol: Document 11/20/19 16:12 [facility] (Rec: 11/20/19 16:13 [facility] [id number]) Pulse Oximetry Assessment Oxygen Saturation (92-100) 98 Oxygen Flow Rate (L/min) 2 Oxygen Delivery Method Nasal Cannula Equipment Usage Equipment in Use Continuous SpO2 Machine # 8 Intake & Output 11/19/19 11/20/19 11/21/19 06:59 06:59 06:59 Intake Total 1382 423 1271 Output Total 1225 2475 600 Balance 235 -1885 1005 Weight 82.6 kg 80.1 kg General appearance: PRESENT: no acute distress, thin Head exam: PRESENT: atraumatic, normocephalic Eye exam: PRESENT: conjunctiva pink, EOMI Mouth exam: PRESENT: moist Neck exam: PRESENT: JVD Respiratory exam: PRESENT: crackles, decreased breath sounds, symmetrical, unlabored Cardiovascular exam: PRESENT: RRR, +S1, +S2, systolic murmur Rectal exam: PRESENT: deferred Musculoskeletal exam: PRESENT: deformity Neurological exam: PRESENT: alert, awake, oriented to person, oriented to place, oriented to time, oriented to situation Skin exam: PRESENT: dry, intact, normal color Results Laboratory Results: 11/19/19 05:50 11/19/19 05:50 11/16/19 15:22 Troponin I 0.214 NT-Pro-B Natriuret Pep 98273 H EKG Comments: Twelve-lead EKG Sinus rhythm, long AV delay, Telemetry sinus rhythm nonsustained VT Impressions: Chest CT 11/17/19 09:25 IMPRESSION: 1. As seen radiographically, there is cardiomegaly with with edema. Bilateral effusions also noted. Findings consistent with CHF. Chest X-Ray 11/19/19 07:00 IMPRESSION: Trace persistent bilateral pleural effusions Bibasilar airspace disease edema versus pneumonia Assessment & Plan - Diagnosis (1) Coronary artery disease Qualifiers: Coronary Disease-Associated Artery/Lesion type: kenaitze artery Is this a current diagnosis for this admission?: Yes Plan: Status post CABG Dilated ischemic cardiomyopathy Continue guideline directed medical therapy as feasible including aspirin statin and beta-doc No ischemic symptoms at present. (2) Systolic congestive heart failure Qualifiers: Heart failure chronicity: acute on chronic Qualified Code(s): I50.23 - Acute on chronic systolic (congestive) heart failure Is this a current diagnosis for this admission?: Yes Plan: Acute decompensated congestive heart failure-systolic Echocardiogram showed severe left ventricular dysfunction with dilated LV with global hypokinesis that is moderate to severe. Apparently most recent echocardiogram had shown ejection fraction of 40%. Once his acute decompensation is improved we have to consider changing his pharmacotherapeutic regimen. He is presently on losartan and metoprolol. These medications can be continued but I suspect we have to change the Cozaar (3) Chronic atrial fibrillation Is this a current diagnosis for this admission?: Yes Plan: Presently maintaining sinus rhythm On systemic anticoagulation-continue On oral amiodarone 200 mg daily This helps maintain sinus rhythm and can be continued. - Notes Notes: We will check a magnesium level. Patient has had aggressive diuresis and we can monitor this
[2019-11-20] MEDS: FUROSEMIDE INJ/PF 20 MG/2 ML SDV IV SCH (21:18)
[2019-11-20] MEDS: ASPIRIN 81 MG TABLET, ENT COATED PO SCH (21:26)
[2019-11-20] MEDS: ATORVASTATIN CALCIUM 40 MG TABLET PO SCH (21:26)
[2019-11-20] MEDS ORDERED: FUROSEMIDE INJ/PF 40 MG/4 ML SDV IV SCH (22:00)
[2019-11-21] MEDS: VANCOMYCIN HCL 750 MG in DEXTROSE 5%-WATER 250 ML IV SCH ×2 (03:00→15:49)
[2019-11-21] MEDS: ACETAMINOPHEN 325 MG TABLET PO PRN ×2 (03:12→13:18)
[2019-11-21] MEDS: GABAPENTIN 300 MG CAPSULE PO SCH ×3 (05:52→22:24)
[2019-11-21] MEDS: PANTOPRAZOLE SODIUM 40 MG TABLET.DR PO SCH (05:52)
[2019-11-21] MEDS: DOCUSATE SODIUM 100 MG CAPSULE PO SCH ×2 (10:05→17:48)
[2019-11-21] MEDS: APIXABAN 5 MG TABLET PO SCH (10:06)
[2019-11-21] MEDS: PREDNISONE 10 MG TABLET PO SCH ×2 (10:06→17:48)
[2019-11-21] MEDS: GUAIFENESIN 600 MG TABLET.SA PO SCH ×2 (10:07→22:24)
[2019-11-21] MEDS: BACLOFEN 10 MG TABLET PO SCH ×2 (10:07→17:48)
[2019-11-21] MEDS: METOPROLOL SUCCINATE 25 MG TAB.SR.24H PO SCH (10:07)
[2019-11-21] MEDS: LOSARTAN POTASSIUM 50 MG TABLET PO SCH (10:07)
[2019-11-21] MEDS: AMIODARONE HCL 200 MG TABLET PO SCH ×2 (10:07→22:24)
[2019-11-21] MEDS: POTASSIUM CHLORIDE 10 MEQ TABLET.ER PO SCH (10:07)
[2019-11-21] MEDS: FERROUS SULFATE 325 MG TABLET PO SCH (10:07)
[2019-11-21] MEDS: ASCORBIC ACID 500 MG TABLET PO SCH (10:08)
[2019-11-21] MEDS: CEFEPIME 1 GM/D5W RTU 1 GM/50 ML RTUPB IV SCH ×3 (10:08→23:38)
[2019-11-21] MEDS: FUROSEMIDE INJ/PF 20 MG/2 ML SDV IV SCH ×2 (10:08→22:23)
[2019-11-21] MEDS: FLUOXETINE HCL 20 MG/5 ML UDCUP PO SCH (10:19)
[2019-11-21 11:19] LABS: ABSOLUTE BASOPHILS # (AUTO) 0.1 10^3/uL (0.0-0.2); ABSOLUTE LYMPHOCYTES (AUTO) 1.2 10^3/uL (0.5-4.7); ABSOLUTE MONOCYTES (AUTO) 0.6 10^3/uL (0.1-1.4); ABSOLUTE NEUT (AUTO) 7.3 10^3/uL (1.7-8.2); BASOPHILS % (AUTO) 0.7 % (0-2); EOSINOPHILS % (AUTO) 0.3 % (0-6); HEMATOCRIT 27.7 % (37.9-51.0); HEMOGLOBIN 9.1 g/dL (13.5-17.0); LYMPHOCYTES % (AUTO) 12.7 % (13-45); MEAN CORPUSCULAR HEMOGLOBIN 30.4 pg (27.0-33.4); MEAN CORPUSCULAR HGB CONC 32.8 g/dL (32.0-36.0); MEAN CORPUSCULAR VOLUME 93 fl (80-97); MONOCYTES % (AUTO) 6.7 % (3-13); PLATELET COUNT 292 10^3/uL (150-450); RED BLOOD COUNT 2.99 10^6/uL (4.35-5.55); RED CELL DISTRIBUTION WIDTH 15.6 % (11.5-14.0); SEGMENTED NEUTROPHILS % (AUTO) 79.6 % (42-78); TOTAL CELLS COUNTED % (AUTO) 100 %; WHITE BLOOD COUNT 9.2 10^3/uL (4.0-10.5)
[2019-11-21 11:45] LABS: ANION GAP 12 (5-19); BLOOD UREA NITROGEN 35 mg/dL (7-20); CALCIUM 8.7 mg/dL (8.4-10.2); CARBON DIOXIDE 22 mmol/L (22-30); CHLORIDE 108 mmol/L (98-107); GLUCOSE 106 mg/dL (75-110); POTASSIUM 4.4 mmol/L (3.6-5.0)
--- NOTE | 2019-11-21 13:26 | PDOC PROGRESS REPORT ---
Subjective Progress Note for:: 11/21/19 Subjective:: Patient resting comfortably. No complaints reported. Nonsustained ventricular tachycardia brief episode Reason For Visit: PNEUMONIA Physical Exam Vital Signs: Temp Pulse Resp BP Pulse Ox 97.2 F 62 20 99/50 L 97 11/21/19 12:10 11/21/19 12:10 11/21/19 12:10 11/21/19 12:10 11/21/19 12:10 Pulse Oximeter Continuous Start: 11/16/19 17:59 Freq: RTQ4 Status: Active Protocol: Document 11/21/19 08:08 [facility] (Rec: 11/21/19 08:10 [facility] [id number]) Additional RT Notes Other Patient indicated his breathing was pretty good today. Pulse Oximetry Assessment Oxygen Saturation (92-100) 91 Oxygen Flow Rate (L/min) 2 Oxygen Delivery Method Nasal Cannula Equipment Usage Equipment in Use Continuous SpO2 Machine # 8 Intake & Output 11/20/19 11/21/19 11/22/19 06:59 06:59 06:59 Intake Total 590 1905 50 Output Total 2475 1500 Balance -1885 405 50 Weight 80.1 kg 77.8 kg General appearance: PRESENT: no acute distress, well-developed Head exam: PRESENT: atraumatic, normocephalic Eye exam: PRESENT: conjunctiva pink, EOMI Respiratory exam: PRESENT: crackles, decreased breath sounds, symmetrical, unlabored Cardiovascular exam: PRESENT: RRR, +S1, +S2 Pulses: PRESENT: normal radial pulses Rectal exam: PRESENT: deferred Skin exam: PRESENT: dry, normal color Results Laboratory Results: 11/21/19 11:08 11/21/19 11:08 11/20/19 11/21/19 11/21/19 19:58 11:08 11:08 WBC 9.2 RBC 2.99 L Hgb 9.1 L Hct 27.7 L MCV 93 MCH 30.4 MCHC 32.8 RDW 15.6 H Plt Count 292 Seg Neutrophils % 79.6 H Sodium 142.2 Potassium 4.4 Chloride 108 H Carbon Dioxide 22 Anion Gap 12 BUN 35 H Creatinine 1.44 H Est GFR ( Amer) 57 L Glucose 106 Calcium 8.7 Magnesium 2.7 H 11/16/19 15:22 Troponin I 0.214 NT-Pro-B Natriuret Pep 31169 H Impressions: Chest CT 11/17/19 09:25 IMPRESSION: 1. As seen radiographically, there is cardiomegaly with with edema. Bilateral effusions also noted. Findings consistent with CHF. Chest X-Ray 11/19/19 07:00 IMPRESSION: Trace persistent bilateral pleural effusions Bibasilar airspace disease edema versus pneumonia Assessment & Plan - Diagnosis (1) Coronary artery disease Qualifiers: Coronary Disease-Associated Artery/Lesion type: [place] artery Is this a current diagnosis for this admission?: Yes Plan: Coronary artery disease Presentation does not appear to be ischemic at this time. Continue guideline directed medical therapy for coronary artery disease. (2) Systolic congestive heart failure Qualifiers: Heart failure chronicity: acute on chronic Qualified Code(s): I50.23 - Acute on chronic systolic (congestive) heart failure Is this a current diagnosis for this admission?: Yes Plan: Acute decompensated congestive heart failure-systolic Left ventricular dysfunction that is severe with ejection fraction estimated approximately 20% Aggressive guideline directed medical therapy He appears to be nearly euvolemic. He will require reassessment of LV function as an outpatient once medical therapy has been instituted. (3) Chronic atrial fibrillation Is this a current diagnosis for this admission?: Yes Plan: Paroxysmal atrial fibrillation Continue systemic anticoagulation Continue p.o. amiodarone 200 mg daily
--- NOTE | 2019-11-21 13:28 | PDOC PROGRESS REPORT ---
Subjective Progress Note for:: 11/21/19 Subjective:: This is an 79 year old male with a past medical history of CAD, prior CABG, atrial fibrillation, congestive heart failure who was discharged recently from [facility] and had a recent left above-knee amputation who was admitted and treated for possible aspiration pneumonia. His chest x-ray showed bilateral interstitial opacities. Patient was started on IV antibiotics. 11/17: Upon encounter, he saturating well on 3 L of nasal cannula. He denies ch est pain or acute shortness of breath. Reviewed chest x-ray which is more suggestive for pulmonary congestion. We will pursue a chest CT to further reassess infiltrates noted on chest x-ray. Currently on home dose of Lasix 20 mg daily. Will increase Lasix and will switch p.o. to IV Lasix. 11/18: No acute event overnight. Chest CT did show pulmonary congestion with pleural effusions. Upon encounter, he is saturating well on nasal cannula. Denies chest pain or acute SOB. Will increase IV Lasix today. Will also check amiodarone level. 11/19: Patient had an episode of agitation last night and was apparently given Ativan. Upon encounter, he is sleepy likely from effect of Ativan. He is arou sable and is oriented to person. He saturating well on BiPAP. 11/20: No acute events overnight. Echo showed reduced EF of 20 to 25%. Upon encounter this morning, he appears awake and is coherent. He is at his baseline mentation. He says he feels much better today. Denies chest pain or shortness of breath. He has been diuresing well. Blood pressures running on the low end. Will decrease IV Lasix. 11/21: No acute event overnight. Denies chest pain or shortness of breath. Blood pressures are still running in the low normal end. Appreciate cardio recommendations. Reason For Visit: PNEUMONIA Physical Exam Vital Signs: Temp Pulse Resp BP Pulse Ox 97.2 F 62 20 99/50 L 97 11/21/19 12:10 11/21/19 12:10 11/21/19 12:10 11/21/19 12:10 11/21/19 12:10 Pulse Oximeter Continuous Start: 11/16/19 17:59 Freq: RTQ4 Status: Active Protocol: Document 11/21/19 08:08 [facility] (Rec: 11/21/19 08:10 [facility] [email or web address]) Additional RT Notes Other Patient indicated his breathing was pretty good today. Pulse Oximetry Assessment Oxygen Saturation (92-100) 91 Oxygen Flow Rate (L/min) 2 Oxygen Delivery Method Nasal Cannula Equipment Usage Equipment in Use Continuous SpO2 Machine # 8 Intake & Output 11/20/19 11/21/19 11/22/19 06:59 06:59 06:59 Intake Total 590 1905 50 Output Total 2475 1500 Balance -1885 405 50 Weight 176 lb 9.444 oz 171 lb 8.314 oz General appearance: PRESENT: no acute distress, well-developed, well-nourished Head exam: PRESENT: atraumatic, normocephalic Eye exam: PRESENT: conjunctiva pink, EOMI, PERRLA. ABSENT: scleral icterus Ear exam: PRESENT: normal external ear exam Mouth exam: PRESENT: moist, tongue midline Neck exam: ABSENT: carotid bruit, JVD, lymphadenopathy, thyromegaly Respiratory exam: PRESENT: rhonchi. ABSENT: rales, wheezes Cardiovascular exam: PRESENT: RRR. ABSENT: diastolic murmur, rubs Pulses: PRESENT: normal dorsalis pedis pul GI/Abdominal exam: PRESENT: normal bowel sounds, soft. ABSENT: distended, guarding, mass, organolmegaly, rebound, tenderness Rectal exam: PRESENT: deferred Extremities exam: PRESENT: other - +left AKA Neurological exam: PRESENT: alert, awake, oriented to person, oriented to place, oriented to time, oriented to situation, CN II-XII grossly intact. ABSENT: motor sensory deficit Results Laboratory Results: 11/21/19 11:08 11/21/19 11:08 11/20/19 11/21/19 11/21/19 19:58 11:08 11:08 WBC 9.2 RBC 2.99 L Hgb 9.1 L Hct 27.7 L MCV 93 MCH 30.4 MCHC 32.8 RDW 15.6 H Plt Count 292 Seg Neutrophils % 79.6 H Sodium 142.2 Potassium 4.4 Chloride 108 H Carbon Dioxide 22 Anion Gap 12 BUN 35 H Creatinine 1.44 H Est GFR ( Amer) 57 L Glucose 106 Calcium 8.7 Magnesium 2.7 H 11/16/19 15:22 Troponin I 0.214 NT-Pro-B Natriuret Pep 63005 H Impressions: Chest CT 11/17/19 09:25 IMPRESSION: 1. As seen radiographically, there is cardiomegaly with with edema. Bilateral effusions also noted. Findings consistent with CHF. Chest X-Ray 11/19/19 07:00 IMPRESSION: Trace persistent bilateral pleural effusions Bibasilar airspace disease edema versus pneumonia Assessment and Plan - Diagnosis (1) Systolic congestive heart failure Qualifiers: Qualified Code(s): I50.23 - Acute on chronic systolic (congestive) heart failure Is this a current diagnosis for this admission?: Yes Plan: 11/17: Reviewed chest x-ray which is more suspicious for pulmonary congestion. Will pursue a chest CT to further reassess infiltrates noted on chest x-ray. Currently on home dose of Lasix 20 mg daily. Will increase Lasix and will switch p.o. to IV Lasix. 11/18: Chest CT did show pulmonary congestion with pleural effusions. Increase IV Lasix to 40 mg q12. 11/19: Continue IV Lasix at 40 mg q12 for now. Creatinine stable. 11/20: Echo showed reduced EF of 20 to 25%. Decrease IV Lasix to 20 mg q12. 11/21: Repeat CXR tomorrow morning. Will continue IV diuresis today and likely switch back to home PO Lasix tomorrow. Plan to switch regimen to Entresto per cardio recs. (2) Pneumonia Is this a current diagnosis for this admission?: Yes Plan: Continue IV antibiotics. (3) Chronic atrial fibrillation Is this a current diagnosis for this admission?: Yes Plan: On amiodarone, metoprolol and Eliquis. - Plan Summary Summary: Patient likely has pneumonia is the primary etiology for admission. He has poor heart function and during his hospitalization in [place] had a transesophageal echo with an ejection fraction of 40%. He does not have a white count but this is likely due to frailty and his recent critical illness. He has a rash on his back that could be related to infection. Blood cultures have been drawn. He will be placed on antibiotics and admitted to the IMCU. We will resume his cardiac medications blood pressure dependent. - Time Time Spent with patient: 25-34 minutes
[2019-11-21 17:21] LABS: ABSOLUTE LYMPHOCYTES (AUTO) 0.6 10^3/uL (0.5-4.7); ABSOLUTE MONOCYTES (AUTO) 0.7 10^3/uL (0.1-1.4); ABSOLUTE NEUT (AUTO) 9.6 10^3/uL (1.7-8.2); BASOPHILS % (AUTO) 0.1 % (0-2); EOSINOPHILS % (AUTO) 0.1 % (0-6); HEMATOCRIT 26.9 % (37.9-51.0); LYMPHOCYTES % (AUTO) 5.7 % (13-45); MEAN CORPUSCULAR HEMOGLOBIN 30.7 pg (27.0-33.4); MEAN CORPUSCULAR HGB CONC 33.5 g/dL (32.0-36.0); MEAN CORPUSCULAR VOLUME 92 fl (80-97); MONOCYTES % (AUTO) 6.6 % (3-13); PLATELET COUNT 284 10^3/uL (150-450); RED BLOOD COUNT 2.94 10^6/uL (4.35-5.55); RED CELL DISTRIBUTION WIDTH 15.6 % (11.5-14.0); SEGMENTED NEUTROPHILS % (AUTO) 87.5 % (42-78); TOTAL CELLS COUNTED % (AUTO) 100 %
[2019-11-21] MEDS: TAMSULOSIN HCL 0.4 MG CAP.SR.24H PO SCH (17:48)
[2019-11-21] MEDS: ATORVASTATIN CALCIUM 40 MG TABLET PO SCH (22:24)
[2019-11-21] MEDS: ASPIRIN 81 MG TABLET, ENT COATED PO SCH (22:24)
[2019-11-21] MEDS: LORAZEPAM INJ 2 MG/1 ML VIAL IV PRN ×2 (22:26→23:38)
[2019-11-22] MEDS: GABAPENTIN 300 MG CAPSULE PO SCH ×3 (06:19→22:03)
[2019-11-22] MEDS: PANTOPRAZOLE SODIUM 40 MG TABLET.DR PO SCH (06:19)
[2019-11-22] MEDS ORDERED: VANCOMYCIN HCL INJ 1000 MG VIAL ONE (06:22)
[2019-11-22 06:26] LABS: ABSOLUTE EOSINOPHILS # (AUTO) 0.1 10^3/uL (0.0-0.6); ABSOLUTE LYMPHOCYTES (AUTO) 1.2 10^3/uL (0.5-4.7); ABSOLUTE MONOCYTES (AUTO) 0.8 10^3/uL (0.1-1.4); ABSOLUTE NEUT (AUTO) 6.1 10^3/uL (1.7-8.2); BASOPHILS % (AUTO) 0.3 % (0-2); EOSINOPHILS % (AUTO) 0.9 % (0-6); HEMATOCRIT 27.3 % (37.9-51.0); HEMOGLOBIN 8.9 g/dL (13.5-17.0); LYMPHOCYTES % (AUTO) 15.2 % (13-45); MEAN CORPUSCULAR HGB CONC 32.7 g/dL (32.0-36.0); MEAN CORPUSCULAR VOLUME 92 fl (80-97); MONOCYTES % (AUTO) 9.1 % (3-13); PLATELET COUNT 264 10^3/uL (150-450); RED BLOOD COUNT 2.97 10^6/uL (4.35-5.55); RED CELL DISTRIBUTION WIDTH 15.5 % (11.5-14.0); SEGMENTED NEUTROPHILS % (AUTO) 74.5 % (42-78); TOTAL CELLS COUNTED % (AUTO) 100 %; WHITE BLOOD COUNT 8.2 10^3/uL (4.0-10.5)
[2019-11-22] MEDS: VANCOMYCIN HCL 750 MG in DEXTROSE 5%-WATER 250 ML IV SCH ×2 (06:35→14:38)
[2019-11-22 06:45] LABS: ANION GAP 10 (5-19); BLOOD UREA NITROGEN 39 mg/dL (7-20); CALCIUM 8.8 mg/dL (8.4-10.2); CARBON DIOXIDE 24 mmol/L (22-30); CHLORIDE 110 mmol/L (98-107); GLUCOSE 83 mg/dL (75-110); POTASSIUM 4.4 mmol/L (3.6-5.0)
--- NOTE | 2019-11-22 09:42 | RADIOLOGY REPORT (SQ) ---
EXAM DESCRIPTION: CHEST SINGLE VIEW COMPLETED DATE/TIME: 11/22/2019 8:58 am REASON FOR STUDY: reassessinfiltrates COMPARISON: AP view of the chest from 11/19/2018 EXAM PARAMETERS: NUMBER OF VIEWS: One view. TECHNIQUE: An AP view of the chest was obtained. RADIATION DOSE: NA LIMITATIONS: None. FINDINGS: LUNGS AND PLEURA: The dense opacities in the bases that obscured the contours of the hemid iaphragms have improved. The costophrenic sulci remain blunted and there is persistent prominence of the interstitium. There is no pneumothorax. MEDIASTINUM AND HILAR STRUCTURES: Stable mediastinal and hilar contours. HEART AND VASCULAR STRUCTURES: Stable cardiomegaly. BONES: No acute findings. HARDWARE: Status post median sternotomy and CABG. OTHER: No other finding. IMPRESSION: The dense opacities in the bases that obscured the contours of the hemidiaphragms have i mproved ; the improvement in these opacities could reflect a decrease in the amount of fluid within t he pleural spaces. Other findings that are indicative of either pulmonary edema or multifocal pneumo roberth persist such as the diffuse prominence of the interstitium and the basilar predominant patchy mul tifocal parenchymal opacity are unchanged. TECHNICAL DOCUMENTATION: JOB ID: [id number] [employer]- All Rights Reserved Reading location - IP/workstation name: [email or web address]
[2019-11-22] MEDS: DOCUSATE SODIUM 100 MG CAPSULE PO SCH ×2 (09:53→18:18)
[2019-11-22] MEDS: FUROSEMIDE INJ/PF 20 MG/2 ML SDV IV SCH (10:01)
[2019-11-22] MEDS: LOSARTAN POTASSIUM 50 MG TABLET PO SCH (10:01)
[2019-11-22] MEDS: FLUOXETINE HCL 20 MG/5 ML UDCUP PO SCH (10:01)
[2019-11-22] MEDS: GUAIFENESIN 600 MG TABLET.SA PO SCH ×2 (10:01→22:01)
[2019-11-22] MEDS: POTASSIUM CHLORIDE 10 MEQ TABLET.ER PO SCH (10:01)
[2019-11-22] MEDS: BACLOFEN 10 MG TABLET PO SCH ×2 (10:01→18:18)
[2019-11-22] MEDS: FERROUS SULFATE 325 MG TABLET PO SCH (10:01)
[2019-11-22] MEDS: AMIODARONE HCL 200 MG TABLET PO SCH ×2 (10:02→22:01)
[2019-11-22] MEDS: METOPROLOL SUCCINATE 25 MG TAB.SR.24H PO SCH (10:02)
[2019-11-22] MEDS: ASCORBIC ACID 500 MG TABLET PO SCH (10:02)
[2019-11-22] MEDS: PREDNISONE 10 MG TABLET PO SCH ×2 (10:02→18:18)
[2019-11-22] MEDS: CEFEPIME 1 GM/D5W RTU 1 GM/50 ML RTUPB IV SCH ×2 (10:02→22:04)
[2019-11-22] MEDS: ACETAMINOPHEN 325 MG TABLET PO PRN ×3 (10:11→22:09)
--- NOTE | 2019-11-22 10:51 | PDOC PROGRESS REPORT ---
Subjective Progress Note for:: 11/22/19 Subjective:: Patient resting comfortably. No complaints reported. Nonsustained ventricular tachycardia brief episodes Reason For Visit: PNEUMONIA Physical Exam Vital Signs: Temp Pulse Resp BP Pulse Ox 97.4 F 87 18 116/54 L 93 11/22/19 07:50 11/22/19 07:50 11/22/19 07:50 11/22/19 07:50 11/22/19 08:00 Pulse Oximeter Continuous Start: 11/16/19 17:59 Freq: RTQ4 Status: Active Protocol: Document 11/22/19 08:00 [facility] (Rec: 11/22/19 08:54 [facility] [email or web address]) Pulse Oximetry Assessment Oxygen Saturation (92-100) 93 Oxygen Flow Rate (L/min) 3 Oxygen Delivery Method Nasal Cannula Fraction of Inspired Oxygen (FIO2) 32 Equipment Usage Equipment in Use Continuous SpO2 Machine # 8 Intake & Output 11/21/19 11/22/19 11/23/19 06:59 06:59 06:59 Intake Total 1905 780 250 Output Total 1500 2050 Balance 405 -1270 250 Weight 77.8 kg 72.8 kg 72.8 kg General appearance: PRESENT: no acute distress Head exam: PRESENT: atraumatic, normocephalic Eye exam: PRESENT: EOMI Respiratory exam: PRESENT: clear to auscultation dariela, symmetrical, unlabored Cardiovascular exam: PRESENT: RRR, +S1 GI/Abdominal exam: PRESENT: soft Musculoskeletal exam: PRESENT: deformity Results Laboratory Results: 11/22/19 05:47 11/22/19 05:47 11/21/19 11/21/19 11/21/19 11:08 11:08 16:15 WBC 9.2 RBC 2.99 L Hgb 9.1 L Hct 27.7 L MCV 93 MCH 30.4 MCHC 32.8 RDW 15.6 H Plt Count 292 Seg Neutrophils % 79.6 H Sodium 142.2 Potassium 4.4 Chloride 108 H Carbon Dioxide 22 Anion Gap 12 BUN 35 H Creatinine 1.44 H Est GFR ( Amer) 57 L Glucose 106 Calcium 8.7 Stool Occult Blood NEGATIVE 11/21/19 11/22/19 11/22/19 16:37 05:47 05:47 WBC 11.0 H 8.2 RBC 2.94 L 2.97 L Hgb 9.0 L 8.9 L Hct 26.9 L 27.3 L MCV 92 92 MCH 30.7 30.0 MCHC 33.5 32.7 RDW 15.6 H 15.5 H Plt Count 284 264 Seg Neutrophils % 87.5 H 74.5 Sodium 143.8 Potassium 4.4 Chloride 110 H Carbon Dioxide 24 Anion Gap 10 BUN 39 H Creatinine 1.45 H Est GFR ( Amer) 57 L Glucose 83 Calcium 8.8 Stool Occult Blood 11/16/19 16:05 Blood Blood Culture - Final NO GROWTH IN 5 DAYS 11/16/19 15:22 Blood Blood Culture - Final NO GROWTH IN 5 DAYS 11/16/19 15:22 Troponin I 0.214 NT-Pro-B Natriuret Pep 01767 H Impressions: Chest CT 11/17/19 09:25 IMPRESSION: 1. As seen radiographically, there is cardiomegaly with with edema. Bilateral effusions also noted. Findings consistent with CHF. Chest X-Ray 11/22/19 07:00 IMPRESSION: The dense opacities in the bases that obscured the contours of the hemidiaphragms have improved ; the improvement in these opacities could reflect a decrease in the amount of fluid within the pleural spaces. Other findings that are indicative of either pulmonary edema or multifocal pneumonia persist such as the diffuse prominence of the interstitium and the basilar predominant patchy multifocal parenchymal opacity are unchanged. Assessment & Plan - Diagnosis (1) Coronary artery disease Qualifiers: Coronary Disease-Associated Artery/Lesion type: [place] artery Is this a current diagnosis for this admission?: Yes Plan: Coronary artery disease Presentation does not appear to be ischemic at this time. Continue guideline directed medical therapy for coronary artery disease. (2) Systolic congestive heart failure Qualifiers: Heart failure chronicity: acute on chronic Qualified Code(s): I50.23 - Acute on chronic systolic (congestive) heart failure Is this a current diagnosis for this admission?: Yes Plan: Acute decompensated congestive heart failure-systolic Left ventricular dysfunction that is severe with ejection fraction estimated approximately 20% Aggressive guideline directed medical therapy He appears to be nearly euvolemic. He will require reassessment of LV function as an outpatient once medical therapy has been instituted. (3) Chronic atrial fibrillation Is this a current diagnosis for this admission?: Yes Plan: Paroxysmal atrial fibrillation Continue systemic anticoagulation Continue p.o. amiodarone 200 mg daily
--- NOTE | 2019-11-22 15:58 | PDOC PROGRESS REPORT ---
Subjective Progress Note for:: 11/22/19 Subjective:: This is an 79 year old male with a past medical history of CAD, prior CABG, atrial fibrillation, congestive heart failure who was discharged recently from [facility] and had a recent left above-knee amputation who was admitted and treated for possible aspiration pneumonia. His chest x-ray showed bilateral interstitial opacities. Patient was started on IV antibiotics. 11/17: Upon encounter, he saturating well on 3 L of nasal cannula. He denies ch est pain or acute shortness of breath. Reviewed chest x-ray which is more suggestive for pulmonary congestion. We will pursue a chest CT to further reassess infiltrates noted on chest x-ray. Currently on home dose of Lasix 20 mg daily. Will increase Lasix and will switch p.o. to IV Lasix. 11/18: No acute event overnight. Chest CT did show pulmonary congestion with pleural effusions. Upon encounter, he is saturating well on nasal cannula. Denies chest pain or acute SOB. Will increase IV Lasix today. Will also check amiodarone level. 11/19: Patient had an episode of agitation last night and was apparently given Ativan. Upon encounter, he is sleepy likely from effect of Ativan. He is arou sable and is oriented to person. He saturating well on BiPAP. 11/20: No acute events overnight. Echo showed reduced EF of 20 to 25%. Upon encounter this morning, he appears awake and is coherent. He is at his baseline mentation. He says he feels much better today. Denies chest pain or shortness of breath. He has been diuresing well. Blood pressures running on the low end. Will decrease IV Lasix. 11/21: Denies chest pain or shortness of breath. Blood pressures are still running in the low normal end. Appreciate cardio recommendations. 11/22: Patient had transient episodes of 6 beats of nonsustained V. tach overnight. He was asymptomatic. Blood pressures slightly improved. Denies chest pain or shortness of breath. He says he feels better today. Repeat chest x-ray shows improvement of pleural effusion. Will switch IV Lasix to PO but will keep it at q12h as he only takes Lasix once a day at home. Plan to start on Entresto if his blood pressures are permissive. Reason For Visit: PNEUMONIA Physical Exam Vital Signs: Temp Pulse Resp BP Pulse Ox 98.2 F 67 18 102/47 L 98 11/22/19 11:53 11/22/19 11:53 11/22/19 11:53 11/22/19 11:53 11/22/19 15:34 Pulse Oximeter Continuous Start: 11/16/19 17:59 Freq: RTQ4 Status: Active Protocol: Document 11/22/19 15:34 [facility] (Rec: 11/22/19 15:35 [facility] [email or web address]) Pulse Oximetry Assessment Oxygen Saturation (92-100) 98 Oxygen Flow Rate (L/min) 3 Oxygen Delivery Method Nasal Cannula Fraction of Inspired Oxygen (FIO2) 32 Equipment Usage Equipment in Use Continuous SpO2 Machine # 8 Intake & Output 11/21/19 11/22/19 11/23/19 06:59 06:59 06:59 Intake Total 1905 780 897 Output Total 1500 2050 280 Balance 405 -1270 617 Weight 171 lb 8.314 oz 160 lb 7.944 oz 160 lb 7.944 oz General appearance: PRESENT: no acute distress, well-developed, well-nourished Head exam: PRESENT: atraumatic, normocephalic Eye exam: PRESENT: conjunctiva pink, EOMI, PERRLA. ABSENT: scleral icterus Ear exam: PRESENT: normal external ear exam Mouth exam: PRESENT: moist, tongue midline Neck exam: ABSENT: carotid bruit, JVD, lymphadenopathy, thyromegaly Respiratory exam: PRESENT: rhonchi. ABSENT: rales, wheezes Cardiovascular exam: PRESENT: RRR. ABSENT: diastolic murmur, rubs Pulses: PRESENT: normal dorsalis pedis pul GI/Abdominal exam: PRESENT: normal bowel sounds, soft. ABSENT: distended, guarding, mass, organolmegaly, rebound, tenderness Rectal exam: PRESENT: deferred Extremities exam: PRESENT: other - +left AKA stump Neurological exam: PRESENT: alert, awake, oriented to person, oriented to place, CN II-XII grossly intact. ABSENT: motor sensory deficit Results Laboratory Results: 11/22/19 05:47 11/22/19 05:47 11/21/19 11/21/19 11/22/19 16:15 16:37 05:47 WBC 11.0 H 8.2 RBC 2.94 L 2.97 L Hgb 9.0 L 8.9 L Hct 26.9 L 27.3 L MCV 92 92 MCH 30.7 30.0 MCHC 33.5 32.7 RDW 15.6 H 15.5 H Plt Count 284 264 Seg Neutrophils % 87.5 H 74.5 Sodium Potassium Chloride Carbon Dioxide Anion Gap BUN Creatinine Est GFR ( Amer) Glucose Calcium Stool Occult Blood NEGATIVE 11/22/19 05:47 WBC RBC Hgb Hct MCV MCH MCHC RDW Plt Count Seg Neutrophils % Sodium 143.8 Potassium 4.4 Chloride 110 H Carbon Dioxide 24 Anion Gap 10 BUN 39 H Creatinine 1.45 H Est GFR ( Amer) 57 L Glucose 83 Calcium 8.8 Stool Occult Blood 11/16/19 16:05 Blood Blood Culture - Final NO GROWTH IN 5 DAYS 11/16/19 15:22 Blood Blood Culture - Final NO GROWTH IN 5 DAYS 11/16/19 15:22 Troponin I 0.214 NT-Pro-B Natriuret Pep 39572 H Impressions: Chest CT 11/17/19 09:25 IMPRESSION: 1. As seen radiographically, there is cardiomegaly with with edema. Bilateral effusions also noted. Findings consistent with CHF. Chest X-Ray 11/22/19 07:00 IMPRESSION: The dense opacities in the bases that obscured the contours of the hemidiaphragms have improved ; the improvement in these opacities could reflect a decrease in the amount of fluid within the pleural spaces. Other findings that are indicative of either pulmonary edema or multifocal pneumonia persist such as the diffuse prominence of the interstitium and the basilar predominant patchy multifocal parenchymal opacity are unchanged. Assessment and Plan - Diagnosis (1) Systolic congestive heart failure Qualifiers: Heart failure chronicity: acute on chronic Qualified Code(s): I50.23 - Acute on chronic systolic (congestive) heart failure Is this a current diagnosis for this admission?: Yes Plan: 11/17: Reviewed chest x-ray which is more suspicious for pulmonary congestion. Will pursue a chest CT to further reassess infiltrates noted on chest x-ray. Currently on home dose of Lasix 20 mg daily. Will increase Lasix and will switch p.o. to IV Lasix. 11/18: Chest CT did show pulmonary congestion with pleural effusions. Increase IV Lasix to 40 mg q12. 11/19: Continue IV Lasix at 40 mg q12 for now. Creatinine stable. 11/20: Echo showed reduced EF of 20 to 25%. Decrease IV Lasix to 20 mg q12. 11/21: Repeat CXR tomorrow morning. Will continue IV diuresis today and likely switch back to home PO Lasix tomorrow. Plan to switch regimen to Entresto per cardio recs. 11/22: Improving. Repeat chest x-ray shows improvement of pleural effusion. Will switch IV Lasix to PO but will keep it at q12h as he only takes Lasix once a day at home. Plan to start on Entresto if his blood pressures are permissive. (2) Pneumonia Is this a current diagnosis for this admission?: Yes Plan: 11/22: Will complete 7 days of IV antibiotics tomorrow. (3) Chronic atrial fibrillation Is this a current diagnosis for this admission?: Yes Plan: On amiodarone, metoprolol and Eliquis. (4) SHA (acute kidney injury) Is this a current diagnosis for this admission?: Yes Plan: Like related to IV diuresis. We will switch IV Lasix to oral today. We will continue to monitor renal functions. - Plan Summary Summary: Patient likely has pneumonia is the primary etiology for admission. He has poor heart function and during his hospitalization in [place] had a transesophageal echo with an ejection fraction of 40%. He does not have a white count but this is likely due to frailty and his recent critical illness. He has a rash on his back that could be related to infection. Blood cultures have been drawn. He will be placed on antibiotics and admitted to the IMCU. We will resume his cardiac medications blood pressure dependent. - Time Time Spent with patient: 25-34 minutes
[2019-11-22] MEDS: APIXABAN 5 MG TABLET PO SCH (18:18)
[2019-11-22] MEDS: TAMSULOSIN HCL 0.4 MG CAP.SR.24H PO SCH (18:18)
[2019-11-22] MEDS: SACUBITRIL/VALSARTAN 24 MG/26 MG TABLET PO SCH (18:18)
[2019-11-22] MEDS: FUROSEMIDE 20 MG TABLET PO SCH (18:18)
[2019-11-22] MEDS: ATORVASTATIN CALCIUM 40 MG TABLET PO SCH (22:01)
[2019-11-22] MEDS: ASPIRIN 81 MG TABLET, ENT COATED PO SCH (22:01)
[2019-11-23] MEDS: VANCOMYCIN HCL 750 MG in DEXTROSE 5%-WATER 250 ML IV SCH ×2 (02:43→14:00)
[2019-11-23] MEDS: OXYCODONE HCL IR 5 MG TABLET PO PRN (05:03)
[2019-11-23] MEDS: SACUBITRIL/VALSARTAN 24 MG/26 MG TABLET PO SCH ×2 (05:22→17:54)
[2019-11-23] MEDS: GABAPENTIN 300 MG CAPSULE PO SCH ×3 (05:23→21:17)
[2019-11-23] MEDS: PANTOPRAZOLE SODIUM 40 MG TABLET.DR PO SCH (05:23)
[2019-11-23 06:24] LABS: ANION GAP 10 (5-19); BLOOD UREA NITROGEN 40 mg/dL (7-20); CALCIUM 8.6 mg/dL (8.4-10.2); CARBON DIOXIDE 22 mmol/L (22-30); CHLORIDE 109 mmol/L (98-107); GLUCOSE 103 mg/dL (75-110); POTASSIUM 4.5 mmol/L (3.6-5.0)
[2019-11-23] MEDS: FUROSEMIDE 20 MG TABLET PO SCH ×2 (09:39→17:50)
[2019-11-23] MEDS: GUAIFENESIN 600 MG TABLET.SA PO SCH ×2 (09:39→21:17)
[2019-11-23] MEDS: DOCUSATE SODIUM 100 MG CAPSULE PO SCH ×2 (09:39→17:50)
[2019-11-23] MEDS: AMIODARONE HCL 200 MG TABLET PO SCH ×2 (09:39→21:17)
[2019-11-23] MEDS: PREDNISONE 10 MG TABLET PO SCH ×2 (09:40→17:50)
[2019-11-23] MEDS: METOPROLOL SUCCINATE 25 MG TAB.SR.24H PO SCH (09:40)
[2019-11-23] MEDS: BACLOFEN 10 MG TABLET PO SCH ×2 (09:40→17:49)
[2019-11-23] MEDS: FERROUS SULFATE 325 MG TABLET PO SCH (09:40)
[2019-11-23] MEDS: APIXABAN 5 MG TABLET PO SCH ×2 (09:40→17:50)
[2019-11-23] MEDS: ASCORBIC ACID 500 MG TABLET PO SCH (09:40)
[2019-11-23] MEDS: FLUOXETINE HCL 20 MG/5 ML UDCUP PO SCH (09:41)
[2019-11-23] MEDS: CEFEPIME 1 GM/D5W RTU 1 GM/50 ML RTUPB IV SCH (09:41)
[2019-11-23] MEDS: POTASSIUM CHLORIDE 10 MEQ TABLET.ER PO SCH (09:50)
[2019-11-23] MEDS ORDERED: FUROSEMIDE 20 MG TABLET PO SCH (10:00)
--- NOTE | 2019-11-23 14:30 | PDOC PROGRESS REPORT ---
Subjective Progress Note for:: 11/23/19 Subjective:: This is an 79 year old male with a past medical history of CAD, prior CABG, atrial fibrillation, congestive heart failure who was discharged recently from [facility] and had a recent left above-knee amputation who was admitted and treated for possible aspiration pneumonia. His chest x-ray showed bilateral interstitial opacities. Patient was started on IV antibiotics. 11/17: Upon encounter, he saturating well on 3 L of nasal cannula. He denies ch est pain or acute shortness of breath. Reviewed chest x-ray which is more suggestive for pulmonary congestion. We will pursue a chest CT to further reassess infiltrates noted on chest x-ray. Currently on home dose of Lasix 20 mg daily. Will increase Lasix and will switch p.o. to IV Lasix. 11/18: No acute event overnight. Chest CT did show pulmonary congestion with pleural effusions. Upon encounter, he is saturating well on nasal cannula. Denies chest pain or acute SOB. Will increase IV Lasix today. Will also check amiodarone level. 11/19: Patient had an episode of agitation last night and was apparently given Ativan. Upon encounter, he is sleepy likely from effect of Ativan. He is arou sable and is oriented to person. He saturating well on BiPAP. 11/20: No acute events overnight. Echo showed reduced EF of 20 to 25%. Upon encounter this morning, he appears awake and is coherent. He is at his baseline mentation. He says he feels much better today. Denies chest pain or shortness of breath. He has been diuresing well. Blood pressures running on the low end. Will decrease IV Lasix. 11/21: Denies chest pain or shortness of breath. Blood pressures are still running in the low normal end. Appreciate cardio recommendations. 11/22: Patient had transient episodes of 6 beats of nonsustained V. tach overnight. He was asymptomatic. Blood pressures slightly improved. Denies chest pain or shortness of breath. He says he feels better today. Repeat chest x-ray shows improvement of pleural effusion. Will switch IV Lasix to PO but will keep it at q12h as he only takes Lasix once a day at home. Plan to start on Entresto if his blood pressures are permissive. 11/23: No acute issues overnight. Patient denies any acute complaints. He says he feels better today. Denies chest pain or shortness of breath. He will get his first dose of Entresto today. Lasix has been switched to oral. Creatinine has slightly improved after switching back IV Lasix to p.o. He will complete his last dose of IV antibiotics today. Anticipate discharge back to [facility] on Monday if patient continues to improve. Reason For Visit: PNEUMONIA Physical Exam Vital Signs: Temp Pulse Resp BP Pulse Ox 97.4 F 65 18 93/37 L 93 11/23/19 12:05 11/23/19 12:05 11/23/19 12:05 11/23/19 12:05 11/23/19 12:29 Pulse Oximeter Continuous Start: 11/16/19 17:59 Freq: RTQ4 Status: Active Protocol: Document 11/23/19 12:29 [facility] (Rec: 11/23/19 12:30 [facility] [id number]) Pulse Oximetry Assessment Oxygen Saturation (92-100) 93 Oxygen Flow Rate (L/min) 3 Oxygen Delivery Method Nasal Cannula Equipment Usage Equipment in Use Continuous SpO2 Machine # 8 Intake & Output 11/22/19 11/23/19 11/24/19 06:59 06:59 06:59 Intake Total 780 1982 1220 Output Total 2050 1080 200 Balance -5065 297 0695 Weight 160 lb 7.944 oz 162 lb 4.163 oz General appearance: PRESENT: no acute distress, well-developed, well-nourished Head exam: PRESENT: atraumatic, normocephalic Eye exam: PRESENT: conjunctiva pink, EOMI, PERRLA. ABSENT: scleral icterus Ear exam: PRESENT: normal external ear exam Mouth exam: PRESENT: moist, tongue midline Neck exam: ABSENT: carotid bruit, JVD, lymphadenopathy, thyromegaly Respiratory exam: PRESENT: rhonchi. ABSENT: rales, wheezes Cardiovascular exam: ABSENT: bradycardia Pulses: PRESENT: normal dorsalis pedis pul GI/Abdominal exam: PRESENT: normal bowel sounds, soft. ABSENT: distended, guarding, mass, organolmegaly, rebound, tenderness Rectal exam: PRESENT: deferred Musculoskeletal exam: PRESENT: other - +left AKA stump Neurological exam: PRESENT: alert, awake, oriented to person, oriented to place, oriented to time, CN II-XII grossly intact. ABSENT: motor sensory deficit Results Laboratory Results: 11/22/19 05:47 11/23/19 05:23 11/23/19 05:23 Sodium 141.2 Potassium 4.5 Chloride 109 H Carbon Dioxide 22 Anion Gap 10 BUN 40 H Creatinine 1.32 H Est GFR ( Amer) > 60 Glucose 103 Calcium 8.6 11/16/19 15:22 Troponin I 0.214 NT-Pro-B Natriuret Pep 93278 H Impressions: Chest CT 11/17/19 09:25 IMPRESSION: 1. As seen radiographically, there is cardiomegaly with with edema. Bilateral effusions also noted. Findings consistent with CHF. Chest X-Ray 11/22/19 07:00 IMPRESSION: The dense opacities in the bases that obscured the contours of the hemidiaphragms have improved ; the improvement in these opacities could reflect a decrease in the amount of fluid within the pleural spaces. Other findings that are indicative of either pulmonary edema or multifocal pneumonia persist such as the diffuse prominence of the interstitium and the basilar predominant patchy multifocal parenchymal opacity are unchanged. Assessment and Plan - Diagnosis (1) Systolic congestive heart failure Qualifiers: Heart failure chronicity: acute on chronic Qualified Code(s): I50.23 - Acute on chronic systolic (congestive) heart failure Is this a current diagnosis for this admission?: Yes Plan: 11/17: Reviewed chest x-ray which is more suspicious for pulmonary congestion. Will pursue a chest CT to further reassess infiltrates noted on chest x-ray. Currently on home dose of Lasix 20 mg daily. Will increase Lasix and will switch p.o. to IV Lasix. 11/18: Chest CT did show pulmonary congestion with pleural effusions. Increase IV Lasix to 40 mg q12. 11/19: Continue IV Lasix at 40 mg q12 for now. Creatinine stable. 11/20: Echo showed reduced EF of 20 to 25%. Decrease IV Lasix to 20 mg q12. 11/21: Repeat CXR tomorrow morning. Will continue IV diuresis today and likely switch back to home PO Lasix tomorrow. Plan to switch regimen to Entresto per cardio recs. 11/22: Improving. Repeat chest x-ray shows improvement of pleural effusion. Will switch IV Lasix to PO but will keep it at q12h as he only takes Lasix once a day at home. Plan to start on Entresto if his blood pressures are permissive. 11/23: Continue to improve. He will get his first dose of Entresto today. Continue oral Lasix. (2) Pneumonia Is this a current diagnosis for this admission?: Yes Plan: 11/22: Will complete 7 days of IV antibiotics tomorrow. 11/23: Will complete antibiotics today. (3) Chronic atrial fibrillation Is this a current diagnosis for this admission?: Yes Plan: On amiodarone, metoprolol and Eliquis. (4) SHA (acute kidney injury) Is this a current diagnosis for this admission?: Yes Plan: Like related to IV diuresis. We will switch IV Lasix to oral today. We will continue to monitor renal functions. 11/23: Creatinine slightly improved from yesterday. - Plan Summary Summary: Patient likely has pneumonia is the primary etiology for admission. He has poor heart function and during his hospitalization in [place] had a transesophageal echo with an ejection fraction of 40%. He does not have a white count but this is likely due to frailty and his recent critical illness. He has a rash on his back that could be related to infection. Blood cultures have been drawn. He will be placed on antibiotics and admitted to the IMCU. We will resume his cardiac medications blood pressure dependent. - Time Time Spent with patient: 25-34 minutes
[2019-11-23] MEDS: TAMSULOSIN HCL 0.4 MG CAP.SR.24H PO SCH (17:49)
[2019-11-23] MEDS: ATORVASTATIN CALCIUM 40 MG TABLET PO SCH (21:17)
[2019-11-23] MEDS: ASPIRIN 81 MG TABLET, ENT COATED PO SCH (21:17)
--- NOTE | 2019-11-23 21:52 | PDOC PROGRESS REPORT ---
Subjective Progress Note for:: 11/23/19 Subjective:: Patient seen and examined. Resting comfortably. No distress mentioned or noted. Reason For Visit: PNEUMONIA Physical Exam Vital Signs: Temp Pulse Resp BP Pulse Ox 97.9 F 70 19 110/52 L 95 11/23/19 19:53 11/23/19 19:53 11/23/19 19:53 11/23/19 19:53 11/23/19 20:00 Pulse Oximeter Continuous Start: 11/16/19 17:59 Freq: RTQ4 Status: Active Protocol: Document 11/23/19 20:00 [facility] (Rec: 11/23/19 21:01 [facility] [id number]) Pulse Oximetry Assessment Oxygen Saturation (92-100) 95 Oxygen Flow Rate (L/min) 3 Oxygen Delivery Method Nasal Cannula Equipment Usage Equipment in Use Continuous SpO2 Machine # 8 Intake & Output 11/22/19 11/23/19 11/24/19 06:59 06:59 06:59 Intake Total 780 1982 1950 Output Total 2050 1080 500 Balance -8241 487 4671 Weight 72.8 kg 73.6 kg General appearance: PRESENT: no acute distress, cooperative Head exam: PRESENT: atraumatic, normocephalic Eye exam: PRESENT: EOMI Respiratory exam: PRESENT: crackles, decreased breath sounds, symmetrical, unlabored Cardiovascular exam: PRESENT: RRR, +S1, +S2, other - Healed sternotomy GI/Abdominal exam: PRESENT: soft Rectal exam: PRESENT: deferred Musculoskeletal exam: PRESENT: deformity - Left BKA Neurological exam: PRESENT: alert, awake, oriented to person Psychiatric exam: PRESENT: appropriate affect Skin exam: PRESENT: dry, intact, normal color Results Laboratory Results: 11/22/19 05:47 11/23/19 05:23 11/23/19 05:23 Sodium 141.2 Potassium 4.5 Chloride 109 H Carbon Dioxide 22 Anion Gap 10 BUN 40 H Creatinine 1.32 H Est GFR ( Amer) > 60 Glucose 103 Calcium 8.6 11/16/19 15:22 Troponin I 0.214 NT-Pro-B Natriuret Pep 61352 H Impressions: Chest CT 11/17/19 09:25 IMPRESSION: 1. As seen radiographically, there is cardiomegaly with with edema. Bilateral effusions also noted. Findings consistent with CHF. Chest X-Ray 11/22/19 07:00 IMPRESSION: The dense opacities in the bases that obscured the contours of the hemidiaphragms have improved ; the improvement in these opacities could reflect a decrease in the amount of fluid within the pleural spaces. Other findings that are indicative of either pulmonary edema or multifocal pneumonia persist such as the diffuse prominence of the interstitium and the basilar predominant patchy multifocal parenchymal opacity are unchanged. Assessment & Plan - Diagnosis (1) Coronary artery disease Qualifiers: Coronary Disease-Associated Artery/Lesion type: [place] artery Is this a current diagnosis for this admission?: Yes Plan: Coronary artery disease Presentation does not appear to be ischemic at this time. Continue guideline directed medical therapy for coronary artery disease. (2) Systolic congestive heart failure Qualifiers: Heart failure chronicity: acute on chronic Qualified Code(s): I50.23 - Acute on chronic systolic (congestive) heart failure Is this a current diagnosis for this admission?: Yes Plan: Acute decompensated congestive heart failure-systolic Left ventricular dysfunction that is severe with ejection fraction estimated approximately 20% Aggressive guideline directed medical therapy He appears to be nearly euvolemic. He will require reassessment of LV function as an outpatient once medical therapy has been instituted. (3) Chronic atrial fibrillation Is this a current diagnosis for this admission?: Yes Plan: Paroxysmal atrial fibrillation Continue systemic anticoagulation Continue p.o. amiodarone 200 mg daily
[2019-11-24] MEDS: ACETAMINOPHEN 325 MG TABLET PO PRN ×2 (01:46→12:10)
[2019-11-24] MEDS: SACUBITRIL/VALSARTAN 24 MG/26 MG TABLET PO SCH ×2 (05:36→17:15)
[2019-11-24] MEDS: GABAPENTIN 300 MG CAPSULE PO SCH ×3 (05:38→21:35)
[2019-11-24] MEDS: PANTOPRAZOLE SODIUM 40 MG TABLET.DR PO SCH (05:38)
[2019-11-24] MEDS ORDERED: OXYCODONE HCL IR 5 MG TABLET PO PRN (07:50)
[2019-11-24] MEDS: DOCUSATE SODIUM 100 MG CAPSULE PO SCH ×2 (09:14→17:10)
[2019-11-24] MEDS: PREDNISONE 10 MG TABLET PO SCH ×2 (09:14→17:09)
[2019-11-24] MEDS: GUAIFENESIN 600 MG TABLET.SA PO SCH ×2 (09:14→21:35)
[2019-11-24] MEDS: POTASSIUM CHLORIDE 10 MEQ TABLET.ER PO SCH (09:14)
[2019-11-24] MEDS: FERROUS SULFATE 325 MG TABLET PO SCH (09:15)
[2019-11-24] MEDS: ASCORBIC ACID 500 MG TABLET PO SCH (09:15)
[2019-11-24] MEDS: APIXABAN 5 MG TABLET PO SCH ×2 (09:15→17:09)
[2019-11-24] MEDS: BACLOFEN 10 MG TABLET PO SCH ×3 (09:16→17:10)
[2019-11-24] MEDS: FOLIC ACID 1 MG TABLET PO SCH (09:16)
[2019-11-24] MEDS: AMIODARONE HCL 200 MG TABLET PO SCH (09:17)
[2019-11-24] MEDS: FLUOXETINE HCL 20 MG/5 ML UDCUP PO SCH (09:18)
--- NOTE | 2019-11-24 09:57 | PDOC PROGRESS REPORT ---
Subjective Progress Note for:: 11/24/19 Subjective:: 79 year old male with a past medical history of CAD, prior CABG, atrial fibrillation, congestive heart failure who was discharged recently from [facility] and had a recent left above-knee amputation who was admitted and treated for possible aspiration pneumonia. His chest x-ray showed bilateral interstitial opacities. Patient was started on IV antibiotics. 11/17: Upon encounter, he saturating well on 3 L of nasal cannula. He denies chest pain or acute shortness of breath. Reviewed chest x-ray which is more suggestive for pulmonary congestion. We will pursue a chest CT to further reassess infiltrates noted on chest x-ray. Currently on home dose of Lasix 20 mg daily. Will increase Lasix and will switch p.o. to IV Lasix. 11/18: No acute event overnight. Chest CT did show pulmonary congestion with pleural effusions. Upon encounter, he is saturating well on nasal cannula. Denies chest pain or acute SOB. Will increase IV Lasix today. Will also check amiodarone level. 11/19: Patient had an episode of agitation last night and was apparently given Ativan. Upon encounter, he is sleepy likely from effect of Ativan. He is arousable and is oriented to person. He saturating well on BiPAP. 11/20: No acute events overnight. Echo showed reduced EF of 20 to 25%. Upon encounter this morning, he appears awake and is coherent. He is at his baseline mentation. He says he feels much better today. Denies chest pain or shortness of breath. He has been diuresing well. Blood pressures running on the low end. Will decrease IV Lasix. 11/21: Denies chest pain or shortness of breath. Blood pressures are still running in the low normal end. Appreciate cardio recommendations. 11/22: Patient had transient episodes of 6 beats of nonsustained V. tach overnight. He was asymptomatic. Blood pressures slightly improved. Denies chest pain or shortness of breath. He says he feels better today. Repeat chest x-ray shows improvement of pleural effusion. Will switch IV Lasix to PO but will keep it at q12h as he only takes Lasix once a day at home. Plan to start on Entresto if his blood pressures are permissive. 11/23: No acute issues overnight. Patient denies any acute complaints. He says he feels better today. Denies chest pain or shortness of breath. He will get his first dose of Entresto today. Lasix has been switched to oral. Creatinine has slightly improved after switching back IV Lasix to p.o. He will complete his last dose of IV antibiotics today. Anticipate discharge back to [facility] on Monday if patient continues to improve. 11/24/2019-no acute events in the last 24 hours. Afebrile. Completed antibiotic therapy yesterday. Waiting to go back to [facility] tomorrow. comfortably in the bed communicating well not in distress. Reason For Visit: PNEUMONIA Physical Exam Vital Signs: Temp Pulse Resp BP Pulse Ox 97.6 F 69 17 96/54 L 96 11/24/19 08:02 11/24/19 08:02 11/24/19 08:02 11/24/19 08:02 11/24/19 08:50 Pulse Oximeter Continuous Start: 11/16/19 17:59 Freq: RTQ4 Status: Active Protocol: Document 11/24/19 08:50 [facility] (Rec: 11/24/19 08:51 [facility] [id number]) Pulse Oximetry Assessment Oxygen Saturation (92-100) 96 Oxygen Flow Rate (L/min) 3 Oxygen Delivery Method Nasal Cannula Equipment Usage Equipment in Use Continuous SpO2 Machine # 3 Intake & Output 11/23/19 11/24/19 11/25/19 06:59 06:59 06:59 Intake Total 1982 1950 Output Total 1080 1575 Balance 902 375 Weight 73.6 kg 73.5 kg General appearance: PRESENT: no acute distress Head exam: PRESENT: atraumatic Eye exam: PRESENT: PERRLA Mouth exam: PRESENT: dry mucosa Teeth exam: PRESENT: poor dentation Neck exam: ABSENT: carotid bruit, JVD, lymphadenopathy, thyromegaly Respiratory exam: PRESENT: decreased breath sounds Cardiovascular exam: PRESENT: RRR. ABSENT: diastolic murmur, rubs, systolic murmur Pulses: PRESENT: normal dorsalis pedis pul GI/Abdominal exam: PRESENT: normal bowel sounds, soft. ABSENT: distended, guarding, mass, organolmegaly, rebound, tenderness Rectal exam: PRESENT: deferred Extremities exam: PRESENT: full ROM. ABSENT: calf tenderness, clubbing, pedal edema Neurological exam: PRESENT: alert, awake, oriented to person, oriented to place, oriented to time, oriented to situation, CN II-XII grossly intact. ABSENT: motor sensory deficit Psychiatric exam: PRESENT: appropriate affect, normal mood. ABSENT: homicidal ideation, suicidal ideation Results Laboratory Results: 11/22/19 05:47 11/23/19 05:23 11/16/19 15:22 Troponin I 0.214 NT-Pro-B Natriuret Pep 45338 H Impressions: Chest CT 11/17/19 09:25 IMPRESSION: 1. As seen radiographically, there is cardiomegaly with with edema. Bilateral effusions also noted. Findings consistent with CHF. Chest X-Ray 11/22/19 07:00 IMPRESSION: The dense opacities in the bases that obscured the contours of the hemidiaphragms have improved ; the improvement in these opacities could reflect a decrease in the amount of fluid within the pleural spaces. Other findings that are indicative of either pulmonary edema or multifocal pneumonia persist such as the diffuse prominence of the interstitium and the basilar predominant patchy multifocal parenchymal opacity are unchanged. Assessment and Plan - Diagnosis (1) Systolic congestive heart failure Qualifiers: Heart failure chronicity: acute on chronic Qualified Code(s): I50.23 - Acute on chronic systolic (congestive) heart failure Is this a current diagnosis for this admission?: Yes Plan: 11/17: Reviewed chest x-ray which is more suspicious for pulmonary congestion. Will pursue a chest CT to further reassess infiltrates noted on chest x-ray. Currently on home dose of Lasix 20 mg daily. Will increase Lasix and will switch p.o. to IV Lasix. 11/18: Chest CT did show pulmonary congestion with pleural effusions. Increase IV Lasix to 40 mg q12. 11/19: Continue IV Lasix at 40 mg q12 for now. Creatinine stable. 11/20: Echo showed reduced EF of 20 to 25%. Decrease IV Lasix to 20 mg q12. 11/21: Repeat CXR tomorrow morning. Will continue IV diuresis today and likely switch back to home PO Lasix tomorrow. Plan to switch regimen to Entresto per cardio recs. 11/22: Improving. Repeat chest x-ray shows improvement of pleural effusion. Will switch IV Lasix to PO but will keep it at q12h as he only takes Lasix once a day at home. Plan to start on Entresto if his blood pressures are permissive. 11/23: Continue to improve. He will get his first dose of Entresto today. Continue oral Lasix. 11/24/2019-patient admitted with acute on chronic systolic heart failure. Patient was started on Entresto yesterday. And the plan is to continue Lasix. Blood pressure today is 105/50. cardiology on board. On examination this morning not in fluid overload. (2) Pneumonia Is this a current diagnosis for this admission?: Yes Plan: 11/22: Will complete 7 days of IV antibiotics tomorrow. 11/23: Will complete antibiotics today. 11/24/2019 patient admitted with healthcare associated pneumonia completed antibiotic therapy yesterday blood cultures are negative. Afebrile. (3) Chronic atrial fibrillation Is this a current diagnosis for this admission?: Yes Plan: On amiodarone, metoprolol and Eliquis. 11/24/2019 patient is presently on amiodarone, metoprolol and apixaban. Heart r ate is in the 60s. In sinus rhythm. (4) SHA (acute kidney injury) Is this a current diagnosis for this admission?: Yes Plan: Like related to IV diuresis. We will switch IV Lasix to oral today. We will continue to monitor renal functions. 11/23: Creatinine slightly improved from yesterday. 11/24/2019 latest serum creatinine is 1.32. Improving. Patient is presently on p.o. Lasix. Plan is to continue to closely monitor the labs on daily basis. - Plan Summary Summary: Patient likely has pneumonia is the primary etiology for admission. He has poor heart function and during his hospitalization in [place] had a transesophageal echo with an ejection fraction of 40%. He does not have a white count but this is likely due to frailty and his recent critical illness. He has a rash on his back that could be related to infection. Blood cultures have been drawn. He will be placed on antibiotics and admitted to the IMCU. We will resume his cardiac medications blood pressure dependent.
[2019-11-24] MEDS ORDERED: (PENDING PHARMACY ID) (Clonidine Hcl [Clonidine Hcl] 0.3 MG) PO SCH (10:00)
[2019-11-24] MEDS ORDERED: FLUOXETINE HCL 20 MG/5 ML UDCUP PO SCH (10:00)
[2019-11-24] MEDS ORDERED: THIAMINE HCL 100 MG TABLET PO SCH (10:00)
[2019-11-24] MEDS ORDERED: (PENDING PHARMACY ID) (Fluoxetine Hcl [Fluoxetine Hcl] 10 MG) PO SCH (10:00)
[2019-11-24] MEDS ORDERED: BACLOFEN 10 MG TABLET PO SCH ×2 (10:00)
[2019-11-24] MEDS ORDERED: (PENDING PHARMACY ID) (Potassium Chloride [Potassium Chloride] 10 MEQ) PO SCH (10:00)
[2019-11-24] MEDS ORDERED: THIAMINE HCL 100 MG PO SCH (10:00)
[2019-11-24] MEDS ORDERED: CLONIDINE HCL 0.1 MG TABLET PO SCH ×2 (10:00)
[2019-11-24] MEDS ORDERED: FLUTICASONE PROPIONATE IN SCH (10:00)
[2019-11-24] MEDS ORDERED: (PENDING PHARMACY ID) (Baclofen [Baclofen] 5 MG) PO SCH (10:00)
--- NOTE | 2019-11-24 12:03 | PDOC PROGRESS REPORT ---
Subjective Progress Note for:: 11/24/19 Subjective:: Patient seen and examined. Resting comfortably. No distress mentioned or noted. Reason For Visit: PNEUMONIA Physical Exam Vital Signs: Temp Pulse Resp BP Pulse Ox 97.6 F 69 17 96/54 L 96 11/24/19 08:02 11/24/19 08:02 11/24/19 08:02 11/24/19 08:02 11/24/19 08:50 Pulse Oximeter Continuous Start: 11/16/19 17:59 Freq: RTQ4 Status: Active Protocol: Document 11/24/19 08:50 [facility] (Rec: 11/24/19 08:51 [facility] [id number]) Pulse Oximetry Assessment Oxygen Saturation (92-100) 96 Oxygen Flow Rate (L/min) 3 Oxygen Delivery Method Nasal Cannula Equipment Usage Equipment in Use Continuous SpO2 Machine # 3 Intake & Output 11/23/19 11/24/19 11/25/19 06:59 06:59 06:59 Intake Total 1982 1950 Output Total 1080 1575 Balance 902 375 Weight 73.6 kg 73.5 kg General appearance: PRESENT: cooperative, well-developed Head exam: PRESENT: atraumatic, normocephalic Eye exam: PRESENT: EOMI Mouth exam: PRESENT: moist Respiratory exam: PRESENT: symmetrical, unlabored Cardiovascular exam: PRESENT: RRR, +S1, +S2 Pulses: PRESENT: normal radial pulses GI/Abdominal exam: PRESENT: soft Rectal exam: PRESENT: deferred Musculoskeletal exam: PRESENT: deformity - Left BKA Neurological exam: PRESENT: alert, oriented to person, oriented to place Skin exam: PRESENT: dry, intact, normal color Results Laboratory Results: 11/22/19 05:47 11/23/19 05:23 11/16/19 15:22 Troponin I 0.214 NT-Pro-B Natriuret Pep 01504 H Impressions: Chest CT 11/17/19 09:25 IMPRESSION: 1. As seen radiographically, there is cardiomegaly with with edema. Bilateral effusions also noted. Findings consistent with CHF. Chest X-Ray 11/22/19 07:00 IMPRESSION: The dense opacities in the bases that obscured the contours of the hemidiaphragms have improved ; the improvement in these opacities could reflect a decrease in the amount of fluid within the pleural spaces. Other findings that are indicative of either pulmonary edema or multifocal pneumonia persist such as the diffuse prominence of the interstitium and the basilar predominant patchy multifocal parenchymal opacity are unchanged. Assessment & Plan - Diagnosis (1) Coronary artery disease Qualifiers: Coronary Disease-Associated Artery/Lesion type: [place] artery Is this a current diagnosis for this admission?: Yes Plan: Coronary artery disease Presentation does not appear to be ischemic at this time. Continue guideline directed medical therapy for coronary artery disease. (2) Systolic congestive heart failure Qualifiers: Heart failure chronicity: acute on chronic Qualified Code(s): I50.23 - Acute on chronic systolic (congestive) heart failure Is this a current diagnosis for this admission?: Yes Plan: Acute decompensated congestive heart failure-systolic Left ventricular dysfunction that is severe with ejection fraction estimated approximately 20% Aggressive guideline directed medical therapy He appears to be nearly euvolemic. He will require reassessment of LV function as an outpatient once medical therapy has been instituted. (3) Chronic atrial fibrillation Is this a current diagnosis for this admission?: Yes Plan: Paroxysmal atrial fibrillation Continue systemic anticoagulation Continue p.o. amiodarone 200 mg daily
[2019-11-24] MEDS: METOPROLOL SUCCINATE 25 MG TAB.SR.24H PO SCH (12:10)
[2019-11-24] MEDS: FUROSEMIDE 20 MG TABLET PO SCH ×2 (12:10→17:10)
[2019-11-24] MEDS: MORPHINE SULFATE 10 MG/ML INJ IV PRN ×2 (13:27→19:27)
[2019-11-24] MEDS: HYDROCHLOROTHIAZIDE 25 MG TABLET PO SCH (17:09)
[2019-11-24] MEDS: TAMSULOSIN HCL 0.4 MG CAP.SR.24H PO SCH (17:10)
--- NOTE | 2019-11-24 17:40 | XCELERA REPORT ---
[address] [address] Lower Extremity Arterial Evaluation Name: TJ RAMOS Age: 79 yrs Gender: Male : 1940 Patient Status: Inpatient Patient Location: [address] [place], [place] [id number] Study Date: 11/24/2019 01:26 PM Procedure: A color flow and duplex scan of the lower extremity arteries was performed on the right with velocity and waveform anaylsis. Reason For Study: RLE/FOOT extreme pain/redness, r/o clot Ordering Physician: GUALBERTO LOGAN Performed By: Kath Nelson Measurements and Calculations Right Left [employer] PSV 213.7 cm/sec Prox PFA PSV -98.7 cm/sec Prox SFA PSV 85.5 cm/sec Mid SFA PSV 41.5 cm/sec Dist SFA PSV -30.3 cm/sec Prox Pop A PSV 25.9 cm/sec Mid ARTIS PSV -30.0 cm/sec Mid [employer] PSV -39.3 cm/sec Right Side Arterial Evaluation High velocity and biphasic waveform noted in the Common Femoral artery . . Biphasic with low velocity in the Popliteal. Monophasic with low velocity, spectral broadening in the infrageniculate vessels. Ankle Brachial index not done. Interpretation Summary Severe hemodynamically significant lesions in the right lower extremity only, on duplex imaging, at rest. Duplex imaging indicates stenosis in the area of the Common Femoral, apparent sequential disease in the Femoral and Popliteal. : GUALBERTO LOGAN > Faustino Sheriff
[2019-11-24] MEDS: ATORVASTATIN CALCIUM 40 MG TABLET PO SCH (21:35)
[2019-11-24] MEDS: ASPIRIN 81 MG TABLET, ENT COATED PO SCH (21:35)
[2019-11-24] MEDS ORDERED: METOPROLOL SUCCINATE 25 MG PO SCH (22:00)
[2019-11-24] MEDS ORDERED: MELATONIN 3 MG TABLET PO SCH (22:00)
[2019-11-25] MEDS: AMIODARONE HCL 200 MG TABLET PO SCH ×2 (03:02→09:46)
[2019-11-25] MEDS: GABAPENTIN 300 MG CAPSULE PO SCH ×2 (05:35→14:21)
[2019-11-25] MEDS: SACUBITRIL/VALSARTAN 24 MG/26 MG TABLET PO SCH (05:35)
[2019-11-25] MEDS: PANTOPRAZOLE SODIUM 40 MG TABLET.DR PO SCH (05:35)
[2019-11-25] MEDS: MORPHINE SULFATE 10 MG/ML INJ IV PRN (05:36)
[2019-11-25 06:35] LABS: ABSOLUTE EOSINOPHILS # (AUTO) 0.1 10^3/uL (0.0-0.6); ABSOLUTE LYMPHOCYTES (AUTO) 1.3 10^3/uL (0.5-4.7); ABSOLUTE MONOCYTES (AUTO) 0.7 10^3/uL (0.1-1.4); ABSOLUTE NEUT (AUTO) 7.2 10^3/uL (1.7-8.2); BASOPHILS % (AUTO) 0.3 % (0-2); EOSINOPHILS % (AUTO) 0.7 % (0-6); HEMATOCRIT 25.3 % (37.9-51.0); HEMOGLOBIN 8.3 g/dL (13.5-17.0); LYMPHOCYTES % (AUTO) 13.6 % (13-45); MEAN CORPUSCULAR HGB CONC 32.8 g/dL (32.0-36.0); MEAN CORPUSCULAR VOLUME 92 fl (80-97); MONOCYTES % (AUTO) 7.3 % (3-13); PLATELET COUNT 218 10^3/uL (150-450); RED BLOOD COUNT 2.76 10^6/uL (4.35-5.55); RED CELL DISTRIBUTION WIDTH 15.6 % (11.5-14.0); SEGMENTED NEUTROPHILS % (AUTO) 78.1 % (42-78); TOTAL CELLS COUNTED % (AUTO) 100 %; WHITE BLOOD COUNT 9.3 10^3/uL (4.0-10.5)
[2019-11-25 06:50] LABS: ALBUMIN 2.8 g/dL (3.5-5.0); ALKALINE PHOSPHATASE 62 U/L (38-126); ANION GAP 8 (5-19); ASPARTATE AMINO TRANSFERASE 25 U/L (17-59); BILIRUBIN,DIRECT 0.3 mg/dL (0.0-0.4); BILIRUBIN,TOTAL 0.7 mg/dL (0.2-1.3); BLOOD UREA NITROGEN 52 mg/dL (7-20); CALCIUM 8.5 mg/dL (8.4-10.2); CARBON DIOXIDE 26 mmol/L (22-30); CHLORIDE 106 mmol/L (98-107); GLUCOSE 102 mg/dL (75-110); TOTAL PROTEIN 5.5 g/dL (6.3-8.2)
[2019-11-25] MEDS: HYDROCHLOROTHIAZIDE 25 MG TABLET PO SCH (09:45)
[2019-11-25] MEDS: APIXABAN 5 MG TABLET PO SCH (09:46)
[2019-11-25] MEDS: FERROUS SULFATE 325 MG TABLET PO SCH (09:46)
[2019-11-25] MEDS: POTASSIUM CHLORIDE 10 MEQ TABLET.ER PO SCH (09:46)
[2019-11-25] MEDS: FOLIC ACID 1 MG TABLET PO SCH (09:46)
[2019-11-25] MEDS: FUROSEMIDE 20 MG TABLET PO SCH (09:46)
[2019-11-25] MEDS: BACLOFEN 10 MG TABLET PO SCH (09:46)
[2019-11-25] MEDS: DOCUSATE SODIUM 100 MG CAPSULE PO SCH (09:46)
[2019-11-25] MEDS: GUAIFENESIN 600 MG TABLET.SA PO SCH (09:46)
[2019-11-25] MEDS: PREDNISONE 10 MG TABLET PO SCH (09:46)
[2019-11-25] MEDS: FLUOXETINE HCL 20 MG/5 ML UDCUP PO SCH (09:51)
[2019-11-25] MEDS: ASCORBIC ACID 500 MG TABLET PO SCH (10:00)
--- NOTE | 2019-11-25 10:56 | PDOC TRANSFER SUMMARY ---
Impression - Admit/DC Date/PCP Admission Date/Primary Care Provider: 11/16/19 18:21 PARAM BROWN MD Discharge Date: 11/25/19 - Discharge Diagnosis (1) Pneumonia Is this a current diagnosis for this admission?: Yes (2) Systolic congestive heart failure Is this a current diagnosis for this admission?: Yes (3) Chronic atrial fibrillation Is this a current diagnosis for this admission?: Yes (4) SHA (acute kidney injury) Is this a current diagnosis for this admission?: Yes - Assessment Summary: Patient likely has pneumonia is the primary etiology for admission. He has poor heart function and during his hospitalization in [place] had a transesophageal echo with an ejection fraction of 40%. He does not have a white count but this is likely due to frailty and his recent critical illness. He has a rash on his back that could be related to infection. Blood cultures have been drawn. He will be placed on antibiotics and admitted to the IMCU. We will resume his cardiac medications blood pressure dependent. 11/25/[id number]-old male admitted with possible aspiration pneumonia. Blood cultures are negative during this hospital stay afebrile WBC count is 9300. Antibiotics are discontinued on 11/23/2019. Pulse ox is 97% on room air. Not in distress. Plan is to discharge him back to [place] on a reverse fdc without antibiotic therapy .(1) Systolic congestive heart failure Qualifiers: Heart failure chronicity: acute on chronic Qualified Code(s): I50.23 - Acute on chronic systolic (congestive) heart failure Is this a current diagnosis for this admission?: Yes Plan: 11/17: Reviewed chest x-ray which is more suspicious for pulmonary congestion. Will pursue a chest CT to further reassess infiltrates noted on chest x-ray. Currently on home dose of Lasix 20 mg daily. Will increase Lasix and will switch p.o. to IV Lasix. 11/18: Chest CT did show pulmonary congestion with pleural effusions. Increase IV Lasix to 40 mg q12. 11/19: Continue IV Lasix at 40 mg q12 for now. Creatinine stable. 11/20: Echo showed reduced EF of 20 to 25%. Decrease IV Lasix to 20 mg q12. 11/21: Repeat CXR tomorrow morning. Will continue IV diuresis today and likely switch back to home PO Lasix tomorrow. Plan to switch regimen to Entresto per cardio recs. 11/22: Improving. Repeat chest x-ray shows improvement of pleural effusion. Will switch IV Lasix to PO but will keep it at q12h as he only takes Lasix once a day at home. Plan to start on Entresto if his blood pressures are permissive. 11/23: Continue to improve. He will get his first dose of Entresto today. Continue oral Lasix. 11/24/2019-patient admitted with acute on chronic systolic heart failure. Patient was started on Entresto yesterday. And the plan is to continue Lasix. Blood pressure today is 105/50. cardiology on board. On examination this morning not in fluid overload. 11/25/2019-on examination today patient is not in fluid overload. Blood pressure is 110/50. Stable. (2) Pneumonia Is this a current diagnosis for this admission?: Yes Plan: 11/22: Will complete 7 days of IV antibiotics tomorrow. 11/23: Will complete antibiotics today. 11/24/2019 patient admitted with healthcare associated pneumonia completed antibiotic therapy yesterday blood cultures are negative. Afebrile. 2019-patient admitted with aspiration pneumonia most likely healthcare associated pneumonia treated with IV antibiotic therapy blood cultures are negative. Afebrile. WBC count within normal limits. Patient is going back to fdc without further antibiotic management. (3) Chronic atrial fibrillation Is this a current diagnosis for this admission?: Yes Plan: On amiodarone, metoprolol and Eliquis. 11/24/2019 patient is presently on amiodarone, metoprolol and apixaban. Heart rate is in the 60s. In sinus rhythm. 2019-patient has history of chronic atrial fibrillation presently on amiodarone, metoprolol and apixaban those medications are resumed and will be continued in the fdc. (4) SHA (acute kidney injury) Is this a current diagnosis for this admission?: Yes Plan: Like related to IV diuresis. We will switch IV Lasix to oral today. We will continue to monitor renal functions. 11/23: Creatinine slightly improved from yesterday. 11/24/2019 latest serum creatinine is 1.32. Improving. Patient is presently on p.o. Lasix. Plan is to continue to closely monitor the labs on daily basis. 11/25/2019-latest serum creatinine is 1.57 stable. Acute on chronic kidney injury is resolving. - Plan Summary Summary: Patient likely has pneumonia is the primary etiology for admission. He has poor heart function and during his hospitalization in [place] had a transesophageal echo with an ejection fraction of 40%. He does not have a white count but this is likely due to frailty and his recent critical illness. He has a rash on his back that could be related to infection. Blood cultures have been drawn. He will be placed on antibiotics and admitted to the IMCU. We will resume his cardiac medications blood pressure dependent. - Additional Information Resuscitation Status: Do Not Resuscitate Discharge Diet: Diabetic Discharge Activity: Activity As Tolerated Referrals: PARAM BROWN MD [Primary Care Provider] - Follow up as needed Home Medications: Metoprolol Succinate 25 mg PO QHS 11/03/19 Ferrous Sulfate [Albafort] 325 mg PO DAILY 11/17/19 Nitroglycerin [Nitrostat 0.4 mg (1/150 Gr) Tabs 25/Bottle] 1 tab SL Q5MP PRN 11/17/19 Amiodarone HCl [Cordarone 200 mg Tablet] 200 mg PO Q12 tablet 11/25/19 Apixaban [Eliquis 5 mg Tablet] 5 mg PO BID tablet 11/25/19 Ascorbic Acid [Vitamin C 500 mg Tablet] 500 mg PO DAILY tablet 11/25/19 Aspirin [Ecotrin 81 mg EC Tablet] 81 mg PO QHS tabec 11/25/19 Atorvastatin Calcium [Lipitor 40 mg Tablet] 40 mg PO QHS tablet 11/25/19 Baclofen [Baclofen 10 mg Tablet] 5 mg PO BID tablet 11/25/19 Docusate Sodium [Colace 100 mg Capsule] 100 mg PO BID capsule 11/25/19 Ferrous Sulfate [Feosol 325 mg Tablet] 325 mg PO DAILY tablet 11/25/19 Fluoxetine HCl [Prozac Soln 20 mg/5 ml Udcup] 10 mg PO DAILY udc 11/25/19 Folic Acid [Folvite 1 mg Tablet] 1 mg PO DAILY tablet 11/25/19 Furosemide [Lasix 20 mg Tablet] 20 mg PO BID tablet 11/25/19 Gabapentin [Neurontin 300 mg Capsule] 600 mg PO Q8 capsule 11/25/19 Hydrochlorothiazide [Hydrodiuril 25 mg Tablet] 25 mg PO DAILY tablet 11/25/19 Prednisone [Deltasone 10 mg Tablet] 10 mg PO BID tablet 11/25/19 Sacubitril/Valsartan [Entresto 24 mg/26 mg Tablet] 1 tab PO Q12A tablet 11/25/19 Tamsulosin HCl [Flomax 0.4 mg Cap.sr] 0.4 mg PO PCSUPPER cap.sr.24h 11/25/19 History of Present Illiness History of Present Illness: TJ RAMOS is a 79 year old male 79 year old male with a past medical history of CAD, prior CABG, atrial fibrillation, congestive heart failure who was discharged recently from [facility] and had a recent left above-knee amputation who was admitted and treated for possible aspiration pneumonia. His chest x-ray showed bilateral interstitial opacities. Patient was started on IV antibiotics. Hospital Course Hospital Course: 79 year old male with a past medical history of CAD, prior CABG, atrial fibrillation, congestive heart failure who was discharged recently from [facility] and had a recent left above-knee amputation who was admitted and treated for possible aspiration pneumonia. His chest x-ray showed bilateral interstitial opacities. Patient was started on IV antibiotics. 11/17: Upon encounter, he saturating well on 3 L of nasal cannula. He denies chest pain or acute shortness of breath. Reviewed chest x-ray which is more suggestive for pulmonary congestion. We will pursue a chest CT to further reassess infiltrates noted on chest x-ray. Currently on home dose of Lasix 20 mg daily. Will increase Lasix and will switch p.o. to IV Lasix. 11/18: No acute event overnight. Chest CT did show pulmonary congestion with pleural effusions. Upon encounter, he is saturating well on nasal cannula. Denies chest pain or acute SOB. Will increase IV Lasix today. Will also check amiodarone level. 11/19: Patient had an episode of agitation last night and was apparently given Ativan. Upon encounter, he is sleepy likely from effect of Ativan. He is arousable and is oriented to person. He saturating well on BiPAP. 11/20: No acute events overnight. Echo showed reduced EF of 20 to 25%. Upon encounter this morning, he appears awake and is coherent. He is at his baseline mentation. He says he feels much better today. Denies chest pain or shortness of breath. He has been diuresing well. Blood pressures running on the low end. Will decrease IV Lasix. 11/21: Denies chest pain or shortness of breath. Blood pressures are still running in the low normal end. Appreciate cardio recommendations. 11/22: Patient had transient episodes of 6 beats of nonsustained V. tach overnight. He was asymptomatic. Blood pressures slightly improved. Denies chest pain or shortness of breath. He says he feels better today. Repeat chest x-ray shows improvement of pleural effusion. Will switch IV Lasix to PO but will keep it at q12h as he only takes Lasix once a day at home. Plan to start on Entresto if his blood pressures are permissive. 11/23: No acute issues overnight. Patient denies any acute complaints. He says he feels better today. Denies chest pain or shortness of breath. He will get his first dose of Entresto today. Lasix has been switched to oral. Creatinine has slightly improved after switching back IV Lasix to p.o. He will complete his last dose of IV antibiotics today. Anticipate discharge back to [facility] on Monday if patient continues to improve. 11/24/2019-no acute events in the last 24 hours. Afebrile. Completed antibiotic therapy yesterday. Waiting to go back to [facility] tomorrow. comfortably in the bed communicating well not in distress. 11/25/2019-on examination this morning patient is comfortable in the bed communicating well. Not in distress. Pulse ox is 98% on room air. Blood cultures are negative. Patient off the antibiotics for the last 48 hours. Patient complaining of severe right lower extremity pain we did arterial Doppler. Patient has a severe peripheral vascular disease. On examination this morning patient denies any pains in the right lower extremity. No pain or tenderness on palpation of the on deep touch of the right lower extremity. Pulses are extremely poor secondary to severe peripheral vascular disease. pt may need to see a vascular surgeon as an outpatient. Physical Exam Vital Signs: Temp Pulse Resp BP Pulse Ox 97.4 F 56 L 16 110/53 L 97 11/25/19 07:16 11/25/19 07:16 11/25/19 07:16 11/25/19 07:16 11/25/19 08:42 Pulse Oximeter Continuous Start: 11/16/19 17:59 Freq: RTQ4 Status: Active Protocol: Document 11/25/19 08:42 [facility] (Rec: 11/25/19 08:43 [facility] [id number]) Pulse Oximetry Assessment Oxygen Saturation (92-100) 97 Oxygen Flow Rate (L/min) 2 Equipment Usage Equipment Standby Continuous SpO2 Machine # 8 Intake & Output 11/24/19 11/25/19 11/26/19 06:59 06:59 06:59 Intake Total 1950 600 300 Output Total 1575 1700 300 Balance 375 -1100 0 Weight 73.5 kg 73.7 kg General appearance: PRESENT: no acute distress, well-developed, well-nourished Head exam: PRESENT: atraumatic Eye exam: PRESENT: PERRLA Mouth exam: PRESENT: moist, tongue midline Neck exam: ABSENT: carotid bruit, JVD, lymphadenopathy, thyromegaly Respiratory exam: PRESENT: decreased breath sounds Cardiovascular exam: PRESENT: RRR. ABSENT: diastolic murmur, rubs, systolic murmur Pulses: PRESENT: other - Refer pulses are very poor. Patient has a left BKA. GI/Abdominal exam: PRESENT: normal bowel sounds, soft. ABSENT: distended, guarding, mass, organolmegaly, rebound, tenderness Rectal exam: PRESENT: deferred Extremities exam: PRESENT: other - Left BKA and right lower extremity peripheral pulses are very poor. No signs of any ischemia seen. Neurological exam: PRESENT: alert, awake, oriented to person, oriented to place, oriented to time, oriented to situation, CN II-XII grossly intact. ABSENT: motor sensory deficit Psychiatric exam: PRESENT: appropriate affect, normal mood. ABSENT: homicidal ideation, suicidal ideation Results Laboratory Results: WBC 9.3 10^3/uL (4.0-10.5) 11/25/19 06:07 RBC 2.76 10^6/uL (4.35-5.55) L 11/25/19 06:07 Hgb 8.3 g/dL (13.5-17.0) L 11/25/19 06:07 Hct 25.3 % (37.9-51.0) L 11/25/19 06:07 MCV 92 fl (80-97) 11/25/19 06:07 MCH 30.0 pg (27.0-33.4) 11/25/19 06:07 MCHC 32.8 g/dL (32.0-36.0) 11/25/19 06:07 RDW 15.6 % (11.5-14.0) H 11/25/19 06:07 Plt Count 218 10^3/uL (150-450) 11/25/19 06:07 Lymph % (Auto) 13.6 % (13-45) 11/25/19 06:07 [place] % (Auto) 7.3 % (3-13) 11/25/19 06:07 Eos % (Auto) 0.7 % (0-6) 11/25/19 06:07 Baso % (Auto) 0.3 % (0-2) 11/25/19 06:07 Absolute Neuts (auto) 7.2 10^3/uL (1.7-8.2) 11/25/19 06:07 Absolute Lymphs (auto) 1.3 10^3/uL (0.5-4.7) 11/25/19 06:07 Absolute Monos (auto) 0.7 10^3/uL (0.1-1.4) 11/25/19 06:07 Absolute Eos (auto) 0.1 10^3/uL (0.0-0.6) 11/25/19 06:07 Absolute Basos (auto) 0.0 10^3/uL (0.0-0.2) 11/25/19 06:07 Total Counted 100 11/19/19 05:50 Seg Neutrophils % 78.1 % (42-78) H 11/25/19 06:07 Seg Neuts % (Manual) 98 % (42-78) H 11/19/19 05:50 Band Neutrophils % 1 % (3-5) L 11/19/19 05:50 Lymphocytes % (Manual) 0 % (13-45) L 11/19/19 05:50 Monocytes % (Manual) 1 % (3-13) L 11/19/19 05:50 Eosinophils % (Manual) 0 % (0-6) 11/19/19 05:50 Basophils % (Manual) 0 % (0-2) 11/19/19 05:50 Abs Neuts (Manual) 8.1 10^3/uL (1.7-8.2) 11/19/19 05:50 Abs Lymphs (Manual) 0.0 10^3/uL (0.5-4.7) L 11/19/19 05:50 Abs Monocytes (Manual) 0.1 10^3/uL (0.1-1.4) 11/19/19 05:50 Absolute Eos (Manual) 0.0 10^3/uL (0.0-0.6) 11/19/19 05:50 Abs Basophils (Manual) 0.0 10^3/uL (0.0-0.2) 11/19/19 05:50 Platelet Comment ADEQUATE 11/19/19 05:50 Anisocytosis SLIGHT 11/19/19 05:50 Carbonic Acid 0.95 mmol/L (1.05-1.35) L 11/16/19 16:39 HCO3/H2CO3 Ratio 22:1 11/16/19 16:39 ABG pH 7.46 (7.35-7.45) H 11/16/19 16:39 ABG pCO2 31.5 mmHg (35-45) L 11/16/19 16:39 ABG pO2 61.0 mmHg (80-100) L 11/16/19 16:39 ABG HCO3 21.8 mmol/L (20-24) 11/16/19 16:39 ABG Total CO2 22.8 mmol/L (23-27) L 11/16/19 16:39 ABG O2 Saturation 92.9 % (94-98) L 11/16/19 16:39 ABG Base Excess -1.6 mmol/L 11/16/19 16:39 FiO2 ROOM AIR 11/16/19 16:39 Sodium 139.7 mmol/L (137-145) 11/25/19 06:07 Potassium 5.0 mmol/L (3.6-5.0) 11/25/19 06:07 Chloride 106 mmol/L (98-107) 11/25/19 06:07 Carbon Dioxide 26 mmol/L (22-30) 11/25/19 06:07 Anion Gap 8 (5-19) 11/25/19 06:07 BUN 52 mg/dL (7-20) H 11/25/19 06:07 Creatinine 1.57 mg/dL (0.52-1.25) H 11/25/19 06:07 Est GFR ( Amer) 52 (>60) L 11/25/19 06:07 Est GFR (MDRD) Non-Af 43 (>60) L 11/25/19 06:07 Glucose 102 mg/dL (75-110) 11/25/19 06:07 Lactic Acid 0.9 mmol/L (0.7-2.1) 11/16/19 15:22 Calcium 8.5 mg/dL (8.4-10.2) 11/25/19 06:07 Magnesium 2.6 mg/dL (1.6-2.3) H 11/25/19 06:07 Total Bilirubin 0.7 mg/dL (0.2-1.3) 11/25/19 06:07 Direct Bilirubin 0.3 mg/dL (0.0-0.4) 11/25/19 06:07 Neonat Total Bilirubin Not Reportable 11/25/19 06:07 Neonat Direct Bilirubin Not Reportable 11/25/19 06:07 Neonat Indirect Bili Not Reportable 11/25/19 06:07 AST 25 U/L (17-59) 11/25/19 06:07 ALT 33 U/L (<50) 11/25/19 06:07 Alkaline Phosphatase 62 U/L (38-126) 11/25/19 06:07 Troponin I 0.214 ng/mL 11/16/19 15:22 NT-Pro-B Natriuret Pep 79524 pg/mL (<450) H 11/16/19 15:22 Total Protein 5.5 g/dL (6.3-8.2) L 11/25/19 06:07 Albumin 2.8 g/dL (3.5-5.0) L 11/25/19 06:07 Urine Color YELLOW 11/16/19 15:55 Urine Appearance SLIGHTLY-CLOUDY 11/16/19 15:55 Urine pH 7.0 (5.0-9.0) 11/16/19 15:55 Ur Specific [place] 1.017 11/16/19 15:55 Urine Protein NEGATIVE mg/dL (NEGATIVE) 11/16/19 15:55 Urine Glucose (UA) NEGATIVE mg/dL (NEGATIVE) 11/16/19 15:55 Urine Ketones NEGATIVE mg/dL (NEGATIVE) 11/16/19 15:55 Urine Blood NEGATIVE (NEGATIVE) 11/16/19 15:55 Urine Nitrite NEGATIVE (NEGATIVE) 11/16/19 15:55 Urine Bilirubin NEGATIVE (NEGATIVE) 11/16/19 15:55 Urine Urobilinogen 2.0 mg/dL (<2.0) H 11/16/19 15:55 Ur Leukocyte Esterase NEGATIVE (NEGATIVE) 11/16/19 15:55 Urine WBC (Auto) 2 /HPF 11/16/19 15:55 Urine RBC (Auto) 3 /HPF 11/16/19 15:55 Urine Mucus (Auto) RARE /LPF 11/16/19 15:55 Urine Ascorbic Acid 20 (NEGATIVE) H 11/16/19 15:55 Stool Occult Blood NEGATIVE (NEGATIVE) 11/21/19 16:15 Time Trough Drawn 1503 11/18/19 15:03 Vancomycin Trough 16.7 ug/mL (5.0-20.0) 11/18/19 15:03 Amiodarone 0.5 ug/mL (1.0-2.5) L 11/18/19 16:40 Noramiodarone 0.3 ug/mL (1.0-2.5) L 11/18/19 16:40 11/16/19 15:22 Troponin I 0.214 NT-Pro-B Natriuret Pep 82722 H Impressions: Chest X-Ray 11/16/19 15:24 IMPRESSION: 1. New consolidation in the right lower lobe with small right pleural effusion suggestive of infectious/inflammatory process. Aspiration pneumonitis can also have this appearance. 2. Patchy retrocardiac opacity may represent multifocal pneumonia or possibly atelectasis. Chest CT 11/17/19 09:25 IMPRESSION: 1. As seen radiographically, there is cardiomegaly with with edema. Bilateral effusions also noted. Findings consistent with CHF. Chest X-Ray 11/19/19 07:00 IMPRESSION: Trace persistent bilateral pleural effusions Bibasilar airspace disease edema versus pneumonia Chest X-Ray 11/22/19 07:00 IMPRESSION: The dense opacities in the bases that obscured the contours of the hemidiaphragms have improved ; the improvement in these opacities could reflect a decrease in the amount of fluid within the pleural spaces. Other findings that are indicative of either pulmonary edema or multifocal pneumonia persist such as the diffuse prominence of the interstitium and the basilar predominant patchy multifocal parenchymal opacity are unchanged. Plan Plan of Treatment: Patient is going back to [facility]. Time Spent: Greater than 30 Minutes Stroke Is this a Stroke Patient?: No Acute Heart Failure - Is this a Heart Failure Patient?: No
[2019-11-25] MEDS: METOPROLOL SUCCINATE 25 MG TAB.SR.24H PO SCH (14:20)
[2019-11-25 15:56] VITALS: BP 76/50
[2019-11-25] MEDS: ACETAMINOPHEN 325 MG TABLET PO PRN (16:30)
== END 2019-11-25 17:02 | DRG 177 ==
LOC: ER 14:40 → EH 17:03 → OBSVTOIN 18:21 → 3S 20:19
PROVIDERS: ADMIT Hospitalist; ATTEND Hospitalist
PROC: 5A09557 Assistance with Respiratory Ventilation, Greater than 96 Consecutive Hours, Continuous Positive Airway Pressure (ICD-10-PCS; principal; 2019-11-18)
DX: J69.0 Pneumonitis due to inhalation of food and vomit (principal); I50.23 Acute on chronic systolic (congestive) heart failure; N17.9 Acute kidney failure, unspecified; I11.0 Hypertensive heart disease with heart failure; I48.0 Paroxysmal atrial fibrillation; R21 Rash and other nonspecific skin eruption; I25.10 Atherosclerotic heart disease of native coronary artery without angina pectoris; D50.9 Iron deficiency anemia, unspecified; I73.9 Peripheral vascular disease, unspecified; J44.9 Chronic obstructive pulmonary disease, unspecified; M19.90 Unspecified osteoarthritis, unspecified site; E78.5 Hyperlipidemia, unspecified; K44.9 Diaphragmatic hernia without obstruction or gangrene; Z66 Do not resuscitate; Z89.612 Acquired absence of left leg above knee; Z79.82 Long term (current) use of aspirin; Z79.899 Other long term (current) drug therapy; Z87.891 Personal history of nicotine dependence; Z95.1 Presence of aortocoronary bypass graft; Z79.01 Long term (current) use of anticoagulants
CPT/HCPCS: 36415; 51701; 71045; 71250; 80048; 80053; 80202; 81001; 82272; 82542; 82565; 82803; 83605; 83735; 83880; 84484; 85025; 87040; 93005; 93010; 93306; 93926; 94640; 94660; 94762; 96361; 96374; 99285; J0692; J1940; J2060; J2270; J2920; J3370; J3490; J7030; J7040; J7060; J7512; P9047